=== PATIENT | male | born 1940 | race Caucasian/White ===

== ENCOUNTER → 2016-09-24 10:01 | Outpatient (CLI) | payer MEDICARE ==
[2013-09-21 14:02] VITALS: BMI 23.5
[~2016-09-24 10:01] MED LIST: BAYER CHEWABLE81 MG PO; COMBIVENT RESPIM4 GM INH; DIOVAN160 MG PO; NORVASC5 MG PO; PLAVIX75 MG PO; PRAVACHOL20 MG PO; PRILOSEC20 MG PO; PROAIR HFA8.5 GM INH; PULMICORT FLEX90 MCG INH; SYMBICORT 16010.2 GM INH
== END | disposition home or self-care (01) ==
LOC: D.RAD 10:01
DX: J40 Bronchitis, not specified as acute or chronic (principal)

== ENCOUNTER → 2016-11-29 13:43 | Outpatient (CLI) | payer MEDICARE ==
[2013-09-21 14:02] VITALS: BMI 23.5
== END | disposition home or self-care (01) ==
LOC: D.RAD 13:43
DX: J44.9 Chronic obstructive pulmonary disease, unspecified (principal)

== ENCOUNTER 2017-01-19 08:44 | Outpatient (CLI) | payer MEDICARE ==
[~2017-01-19] VITALS: Ht 182.9 cm; Wt 84.1 kg
--- NOTE | ~2017-01-19 | HEMODYNAMI ---
PATIENT:SONU GALLARDO MEDICAL RECORD: [id number] : 44 [facility] DATE: 01/19/17 Generatedon:01/19/201712:49 Patient name: SONU GALLARDO Patient #: [id number] SSN: : 1940 Date of study: 01/19/2017 Page: Of Hemodynamic Procedure Report Patient Data Patient Demographics Procedure consent was obtained First Name: SONU Gender: Male Last Name: SAMI : 1940 Patient #: [id number] Age: 76 year(s) Race: Additional ID: [id number] Contact details Address: [address] [place] [address] State: [place] [facility] [place]: [address] Past Medical History Allergies: No known allergies Admission Admission Data Admission Date: 01/19/2017 Admission Time: 8:44 Height (in.): 72 BSA: 2.06 (m2) Height (cm.): 182.88 BMI: 25.14 (kg/m2) Weight (lbs.): 185.39 Weight (kg.): 84.09 Lab Results Lab Result Date: 01/19/2017 Lab Result Time: 10:05 Biochemistry Name Units Result Min Max BUN mg/dl 17 --(---*)-- 7 18 Creatinine mg/dl 1 --(--*-)-- 0.6 1.3 CBC Name Units Result Min Max Hematocrit % 47.9 --(-*--)-- 42 54 Hemoglobin g/dl 15.9 --(--*-)-- 13.5 17.5 Procedure Procedure Types Cath Procedure Diagnostic Procedure C [facility] w/Coronaries Cardioversion BRITTNEY PCI Procedure Procedure Description Procedure Date Procedure Date: 01/19/2017 Procedure Start Time: 12:24 Procedure End Time: 12:43 Procedure Staff Name Function Nydia Geiger RT Scrub Ramon Delarosa RN Artist Suspect Darrin Zuniga RN Nurse Rob Bang CRNA Additional personnel Shantanu Gutierrez MD Performing Physician Jose Juan Murillo RT Monitor Procedure Data Cath Procedure Fluoroscopy Diagnostic fluoroscopy Total fluoroscopy Time: 1.9 time: 1.9 min min Diagnostic fluoroscopy Total fluoroscopy dose: 360 dose: 360 mGy mGy Contrast Material Contrast Material Type Amount (ml) Isovue 300 66 Entry Location Entry Primary Successful Side Size Upsize Upsize Entry Closure Succes sful Closure Location (Fr) 1 (Fr) 2 (Fr) Remarks Device Remarks Femoral Right 5 Fr 6 Fr Exoseal artery Short Estimated blood loss: 10 ml Diagnostic catheters Device Type Used For End Catheter Placement Cordis 5Fr Pigtail Procedure Catheter (MP) Cordis 5Fr JL 4.0 Procedure Catheter (MP) Cordis 5Fr 3DRC Catheter Procedure (MP) Procedure Complications No complications Procedure Medications Medication Administration Route Dosage Oxygen NC 2 l/min Lidocaine 2% added to field 20 Heparin Flush Bag added to field 2 bags (1000units/500ml NS) 0.9% NaCl I.V. 100 ml/hr Benadryl I.V. 50 mg unlisted medication Hurricaine [place] P.O. 1 Sprays Refer to Anesthesia Notes for Sedation Medications Fentanyl I.V. 50 mcg Heparin Bolus I.V. 4000 units Fentanyl I.V. 50 mcg Hemodynamics Rest BSA: 2.06 (m2) HGB: 15.9 (g/dl) O2 Consumption: Estimated: 230.19 (ml/min) O2 Co nsumption indexed: Estimated:111.74 (ml/min/m) Heart Rate: 61 (bpm) Snapshots Pre Cath Intra NCS Post Cath Vital Signs Time Heart Resp SPO2 etCO2 [id number] Respiration NIBP (mmHg) Rhythm Joe n Sedation Rate (ipm) (%) (mmHg) (mmHg) (CO2) (ipm) Status Leve l (bpm) 11:50:13 74 19 97 30.1 4.5 17 137/99(133) A-Fib 0 ( 11) 10(A) , No pain 11:54:18 75 15 98 29.3 3.7 7 150/99(136) A-Fib 0 ( 11) 10(A) , No pain 11:59:17 85 31 99 24 1.5 11 Measuring A-Fib 0 ( 11) 10(A) , No pain 12:02:20 80 24 99 28.6 5.2 15 148/68(129) A-Fib 0 ( 11) 10(A) , No pain 12:06:42 72 15 93 0 0 133/90(103) NSR 0 ( 11) 9(A) , No pain 12:12:14 73 18 93 30.8 3 29 73/44(64) NSR 0 ( 11) 9(A) , No pain 12:17:10 62 19 93 5.2 5.2 116/73(100) NSR 0 ( 11) 9(A) , No pain 12:21:22 62 16 96 2.2 2.2 120/71(96) NSR 0 ( 11) 9(A) , No pain 12:26:19 57 14 100 8.2 0 139/74(118) NSR 0 ( 11) 9(A) , No pain 12:30:37 61 16 100 6.7 6.7 143/83(123) NSR 0 ( 11) 9(A) , No pain 12:34:53 68 24 100 5.2 5.2 159/96(129) NSR 0 ( 11) 10(A) , No pain 12:39:16 69 17 100 9.7 0 154/105(130) NSR 0 ( 11) 10(A) , No pain 12:43:36 99 33.1 0 4 164/99(152) NSR 0 ( 11) 10(A) , No pain Medications Time Medication Route Dose Verified Delivered Reason Notes Effectiveness by by 11:51:25 Oxygen NC 2 Shantanu Clifford used for l/min Matt Zuniga RN procedure 11:51:31 Lidocaine 2% added 20ml Shantanu Fournier for local to vial Matt Gutierrez MD anesthetic field 11:51:40 Heparin Flush added 2 bags Shantanu Fournier used for Bag to Matt Gutierrez MD procedure (1000units/500ml field NS) 11:51:50 0.9% NaCl I.V. 100 Shantanu Clifford Per physician ml/hr Matt Zuniga RN 11:52:02 Benadryl I.V. 50 mg Shantanu Clifford used for Matt Zuniga RN procedure 11:58:30 Viscoius gargle Shantanu Clifford Per physician Lidocaine Matt Zuniga RN 11:58:42 Hurricaine [place] P.O. 1 Shantanu Clifford used for Sprays Matt Zuniga RN procedure 12:00:54 Refer to Shantanu Clifford Anesthesia Notes Matt Zuniga RN for Sedation Medications 12:23:46 Fentanyl I.V. 50 mcg Shantanu Clifford for sedation Matt Zuniga RN 12:27:35 Heparin Bolus I.V. 4000 Shantanu Clifford for verif ied units Matt Zuniga RN anticoagulation with dr gutierrez 12:30:56 Fentanyl I.V. 50 mcg Shantanu Clifford for sedation Matt Zuniga RN Procedure Log Time Note 11:30:50 Ramon Delarosa RN sent for patient. Start room use. 11:42:04 Time tracking: Regular hours 11:42:09 Plan of Care:Hemodynamics will remain stable., Cardiac rhythm will remain stable., Comfort level will be maintained., Respiratory function will remain adequate., Patient/ family verbilizes understanding of procedure., Procedure tolerated without complication., Recovers from procedure without complications.. 11:42:14 Patient received from Pre/Post Procedure Room to CCL 1 Alert and oriented. Tansferred to table in Supine position. 11:42:15 Warm blankets applied, and yumiko hugger turned on for patient comfort. 11:42:16 Correct patient and procedure confirmed by team. 11:42:17 Signed procedure consent form obtained from patient. 11:42:18 ECG and BP/O2 sat monitors applied to patient. 11:43:35 Full Disclosure recording started 11:43:43 H&P Date Dictated: 01/17/2017 Within 30 days and on chart., H&P Addendum completed by physician on day of procedure. (MUST COMPLETE FOR ALL OUTPATIENTS). 11:43:45 Pre-op teaching completed and patient verbalized understanding. 11:43:45 Pre-procedure instructions explained to patient. 11:43:47 Family in waiting room. 11:43:48 Patient NPO since Midnight. 11:44:53 Patient allergic to No known allergies 11:44:56 Is the patient allergic to Iodine/contrast media? No. 11:44:58 Is patient on blood thinner?Yes 11:45:08 ACC The patient was administered the following blood thiners within the last 24 hours: ACCPlavix 11:45:10 Patient diabetic? No. 11:45:13 Previous problem with sedation/anesthesia? No ? 11:45:15 Snore? No 11:45:17 Sleep apnea? No 11:45:18 Opens mouth fully? Yes 11:45:18 Deviated septum? No 11:45:19 Sticks out tongue? Yes 11:45:26 Airway obstruction? Yes COPD 11:45:29 Dentures? No ? 11:45:31 Pre procedure: right dorsailis pedis pulse 2+ Normal; easily identifiable; not easily obliterated 11:45:35 Patient pain scale 0/10 ?. 11:47:52 Vital chart was started 11:48:00 Rhythm: atrial fibrillation 11:49:43 Rob Bang present and monitoring patient for TIVA. 11:51:25 Oxygen 2 l/min NC was administered by Darrin Zuniga RN; used for procedure; 11:51:31 Lidocaine 2% 20ml vial added to field was administered by Shantanu Gutierrez MD; for local anesthetic; 11:51:40 Heparin Flush Bag (1000units/500ml NS) 2 bags added to field was administered by Shantanu Gutierrez MD; used for procedure; 11:51:50 0.9% NaCl 100 ml/hr I.V. was administered by Darrin Zuniga RN; Per physician; 11:52:02 Benadryl 50 mg I.V. was administered by Darrin Zuniga RN; used for procedure; 11:54:45 [facility] Lizette Vendor Analyst present for BRITTNEY. 11:56:59 Final Timeout: patient, procedure, and site verified with staff and physician. All members of the team are in agreement. 11:57:04 Right groin site verified by team. 11:57:07 Physical assessment completed. ASA score P 4 - A patient with severe systemic disease that is a constant threat to life as per Shantanu Gutierrez MD. 11:57:13 Sedation plan: TIVA Propofol 11:58:30 Viscoius Lidocaine gargle was administered by Darrin Zuniga RN; Per physician; 11:58:42 Hurricaine [place] 1 Sprays P.O. was administered by Darrin Zuniga RN; used for procedure; 12:00:54 Refer to Anesthesia Notes for Sedation Medications was administered by Darrin Zuniga RN; ; 12:01:43 Procedure started. 12:03:14 BRITTNEY started. 12:04:07 BRITTNEY completed. 12:04:45 IV patent on arrival in left hand with 0.9% NaCl at O. 12:05:27 Lab Result : Hemoglobin 15.9 g/dl 12:05:27 Lab Result : Hematocrit 47.9 % 12:: Lab Result : BUN 17 mg/dl 12:: Lab Result : Creatinine 1 mg/dl 12:05:37 Quick combo pads placed on patients chest and back. 12:05:49 Defibrillator synced and charged to 300 Joules. 12:05:52 Shock delivered. 12:06:08 Patient cardioverted to sinus rhythm . 12:07:12 Lab results completed and on chart. 12:07:14 Right groin area was prepped with chlora-prep and draped in sterile fashion 12:07:16 Sharps counted by scrub and verified by R.N. 12:07:16 Alarms reviewed by R. N. 12:18:49 Baseline sample Acquired. 12:18:57 Use device set Femoral Dx 12:18:58 Tegaderm 4 x 4 opened to sterile field. 12:18:59 Acist Manifold opened to sterile field. 12:19:00 Acist Hand Control opened to sterile field. 12:19:01 Bag Decanter opened to sterile field. 12:19:01 Acist Syringe opened to sterile field. 12:19:02 Terumo 5Fr [place] Sheath opened to sterile field. 12:19:02 Medline Cath Pack opened to sterile field. 12:19:03 St Naveen 260cm J .035 wire opened to sterile field. 12:19:04 Diagnostic Infinity 5Fr Multipack catheter opened to sterile field. 12:22:19 Zero performed for pressure channel P1 12:23:46 Fentanyl 50 mcg I.V. was administered by Darrin Zuniga RN; for sedation; 12:24:35 Local anesthetic to right femoral artery with Lidocaine 2% by Shantanu Gutierrez MD.INITIAL ACCESS ONLY 12:25:06 A 5 Fr sheath was inserted into the Right Femoral artery 12::34 Zero performed for pressure channel P1 12::38 Zero performed for pressure channel P1 12::42 Zero performed for pressure channel P1 12:26:03 Zero performed for pressure channel P1 12::08 Zero performed for pressure channel P1 12:26:13 A Cordis 5Fr Pigtail Catheter (MP) was advanced over the wire and used for Procedure. 12:26:30 LV gram done using COOPER 12::35 Injector settings: Ml/sec: 10, Volume: 20, 12::44 EF : 40 % 12::58 Catheter exchanged over wire. 12:: A Cordis 5Fr JL 4.0 Catheter (MP) was advanced over the wire and used for Procedure. 12::35 Heparin Bolus 4000 units I.V. was administered by Darrin Zuniga RN; for anticoagulation; verified with dr gutierrez 12::44 Terumo 6Fr [place] Sheath opened to sterile field. 12:27:45 Ustream BasixCompak Inflation Kit opened to sterile field. 12:27:46 Patel Whisper J 300cm 0.014 guide wire opened to sterile field. 12:27:49 Catheter exchanged over wire. 12::57 A Cordis 5Fr 3DRC Catheter (MP) was advanced over the wire and used for Procedure. 12:28: RCA angiography performed. 12:28:19 Catheter removed. 12:28:38 Cordis 6FR XBLAD 3.5 guide catheter opened to sterile field. 12:28:53 Sheath upsized to a 6 Fr Short. 12:29:59 6 Fr XBLAD 3.5 guide catheter was inserted over the wire 12:30:08 WHISPER wire advanced. 12:30:56 Fentanyl 50 mcg I.V. was administered by Darrin Zuniga RN; for sedation; 12:31:00 Wire advanced across lesion. 12::45 Inflation Number: 1 A Biofreedom 3.5 x 11 stent (No Cost Implant) was prepped and advanced across the Prox LAD. The stent was deployed at 15 ERWIN for 0:10 (min:sec). 12:32:19 Stent catheter was removed intact over wire. 12:32:20 Guide catheter removed. 12:32:20 Wire removed. 12:32:26 Cordis 6Fr Exoseal opened to sterile field. 12:32:35 Sheath removed intact; hemostasis achieved with Exoseal to the Right Femoral artery. 12:32:39 Procedure ended.(Physican Out) 12:37:09 Fluoroscopy time 01.90 minutes. 12:38:01 Fluoroscopy dose: 360 mGy 12:38:01 Flurop Dose total: 360 12:38:06 Contrast amount:Isovue 300 66ml. 12:38:08 Sharps counted by scrub and verified by R.N. 12:38:09 Insertion/operative site no bleeding no hematoma. 12:38:12 Post-op/insertion site Right Femoral artery dressed using a 4 x 4 and Tegaderm. 12:38:15 Post right femoral artery:stable, soft, clean and dry 12:38:17 Post Procedure Pulses reassessed and unchanged 12:38:19 Post-procedure physical assessment completed. ASA score P 4 - A patient with severe systemic disease that is a constant threat to life as per Shantanu Gutierrez MD. 12:38:22 Post procedure rhythm: sinus rhythm 12:38:24 Estimated blood loss: 10 ml 12:38:25 Patient needs reinforcement of post procedure teaching. 12:38:25 Post procedure instruction explained to patient.Patient verbalizes understanding. 12:38:55 Procedure type changed to Cath procedure, Diagnostic procedure, LHC, LHC w/Coronaries, Cardioversion, BRITTNEY, PCI procedure 12:41:03 Quick Combo opened to sterile field. 12:42:58 Procedure and supply charges have been captured, reviewed, submitted and are correct. 12:43:00 Procedure Complication : No complications 12:43:04 Vital chart was stopped 12:43:16 See physician's report for complete and final results. 12:43:19 Report given to Pre/Post Procedure Room. 12:43:21 Patient transfered to Pre/Post Procedure Room with Stretcher. 12:43:23 Full Disclosure recording stopped 12:43:23 Procedure ended. 12:43:27 End room use (Document Last) 12:49:32 Patient Weight : 185.39 kg 12:49:37 Patient Height : 72 cm Intervention Summary Intervention Notes Time ActionType Lesion and Equipment Action# Pressure Duration Attributes Used 12:31:45 Place stent Prox LAD Biofreedom 1 15 00:10 3.5 x 11 stent (No Cost Implant) Device Usage Item Name Manufacture Quantity Catalog Hospital Part Current Minima l Lot# / Number Charge Number Stock Stock Serial# Code Tegaderm 4 3M 1 1626W 279672 [id number] 304919 5 x 4 Acist Acist 1 92260 723361 197021 215417 5 Manifold Medical Systems Inc Acist Hand Acist 1 18255 284364 129644 571783 5 Control Medical Systems Inc Acist Acist 1 02705 204491 260062 724503 20 Syringe Medical Systems Inc Bag Microtek 1 2001S 537620 63030 480800 5 AFreeze Inc. Medline Cardinal 1 [id number] 845833 61287 017012 5 Cath Pack Health Terumo 5Fr Terumo 1 JOX219 535963 151092 673347 [address] [place] [address] St Naveen 1 566402 858192 668622 131129 30 260cm J .035 wire Diagnostic Cardinal 1 [id number] 238071 04986 855473 30 Infinity Health 5Fr Multipack catheter Cordis 5Fr Cardinal 1 055718 5 Pigtail Health Catheter (MP) Cordis 5Fr Cardinal 1 019720 5 JL 4.0 Health Catheter (MP) Terumo 6Fr Terumo 1 UGE131 581019 309797 006940 40 [place] Sheath [facility] 1 HX1752 171799 614726 575296 15 An Giang Plant [employer] Medical Inflation Kit Patel Patel 1 [id number] 696224 957601 643706 5 Whisper J Vascular 300cm 0.014 guide wire Cordis 5Fr Cardinal 1 836517 5 3DRC Health Catheter (MP) Cordis 6FR Cardinal 1 [id number] 333086 165014 538463 10 XBLAD 3.5 Health guide catheter Biofreedom Biosensors 1 [facility]2-2266 531988 801647 5 [id number] 3.5 x 11 [place] SA stent (No Cost Implant) Cordis 6Fr Cardinal 1 EX600 030765 246875 033766 10 [employer] Combo Edge Systems 1 27489-787981 515630 557108 046829 5 Signature Audit Tiller Stage Time Signature Unsigned Intra-Procedure 01/19/2017 Jose Juan Murillo RT(R) 12:44:11 PM RT(R) 01/19/2017 12:49:26 PM Intra-Procedure 01/19/2017 Jose Juan Murillo 12:49:51 PM RT(R) Signatures Monitor : Jose Juan Murillo RT Signature : Date : Time : [facility] [address] [place] [address]
[2017-01-19] MEDS ORDERED: CARTIA XT240 MG PO (09:46)
[2017-01-19 09:55] VITALS: BP 138/95; Ht 182.9 cm; Wt 84.1 kg
[2017-01-19 10:13] LABS: BASOPHILS 0.3 % (0-2); EOSINOPHILS 1.4 % (0-7); HEMATOCRIT 47.8 % (42.0-54.0); HEMOGLOBIN 15.9 g/dL (13.5-17.5); IMMATURE GRANULOCYTES 0.5 % (0-5); LYMPHOCYTES 9.2 % (15-50); MCH 32.3 pg (26.0-34.0); MCHC 33.3 g/dL (31.0-37.0); MEAN PLATELET VOLUME 10.5 fL (7.4-10.4); MONOCYTES 7.7 % (2-11); NEUTROPHILS 80.9 % (40-80); RBC 4.93 10x6/uL (4.20-6.10); RDW 12.1 % (11.5-14.5); WBC 12.1 10x3/uL (4.8-10.8)
[2017-01-19 10:22] LABS: PLATELET COUNT 207 10x3/uL (130-400)
[2017-01-19] MEDS ORDERED: XARELTO20 MG PO (10:29)
[2017-01-19 10:38] LABS: CALC OSMOLALITY 283 mosm/kg (275-300); CALCIUM 9.4 mg/dL (8.5-10.1); CARBON DIOXIDE 30.9 mmol/L (21.0-32.0); CHLORIDE - SERUM 103 mmol/L (98-107); CKMB 4.3 U/L (0.0-3.6); CREATINE KINASE 81 UL (21-232); GLUCOSE 121 mg/dL (74-106); POTASSIUM - SERUM 4.7 mmol/L (3.5-5.1); SODIUM 141 mmol/L (136-145); UREA NITROGEN 17 mg/dL (7-18); eGFR NON AFRICAN AMERICAN 78 mL/min (90-120)
[2017-01-19 10:54] LABS: TROPONIN-I < 0.017 ng/mL (0.000-0.060)
[2017-01-19 10:58] LABS: INR 1.05 (0.85-1.17); PROTIME 13.4 SECONDS (11.6-15.0)
--- NOTE | 2017-01-19 13:00 | NUR ---
RIGHT GROIN CDI, NO HEMATOMA OR BLEEDING, SOFT TO TOUCH
--- NOTE | 2017-01-19 13:30 | NUR ---
NO CHANGES, RIGHT GROIN CDI, DENIES PAIN OR NEEDS
--- NOTE | 2017-01-19 16:15 | NUR ---
AWAKE, SAT UP IN BED, SANDWICH AND COLA SERVED, DENIES CHEST PAIN OR NEEDS AT THIS TIME.RIGHT GROIN CDI-NO HEMATOMA OR BLEEDING NOTED, LAB AND EKG COMPLETED
--- NOTE | 2017-01-19 17:00 | NUR ---
IV D'C WITH CATH TIP INTACT, WRITTEN AND VERBAL INSTRUCTIONS GIVEN. DENIES CHEST PAIN.
--- NOTE | 2017-01-21 11:01 | TEE ---
PATIENT:SONU GALLARDO MEDICAL RECORD: [id number] LOCATION:D.CAT AGE OF PATIENT: 76 ADMISSION DATE: 01/19/17 SEX: M REFERRING PHYSICIAN: INTERPRETING PHYSICIAN: JORGE LUIS GUTIERREZ MD TRANSESOPHAGEAL ECHOCARDIOGRAM BRITTNEY CHARGE Y INDICATIONS: CAD/A-FIB - PRE CARDIOVERSION - EVALUATE FOR CLOT IN LA APPENDAGE PREMEDICATIONS: PATIENT'S RESPONSE PROCEDURE DOPPLER MEASUREMENTS: LVIT LA PA RA LVOT RVOT Asc. Ao AV Gradient Peak AV Mean AV Area MV Gradient Peak MV Mean MV Area INTERPRETATION: Doppler: 2-D: COLOR FLOW DOPPLER NORMAL SALINE STUDY: MISCELLANOUS: DIAGNOSIS: PLAN: Stamping Machine Operator:1 Dr. Gutierrez Care Coordination Manager: 1 SKYLAR DELA CRUZ COMMENTS: TRANSESOPHAGEAL ECHOCARDIOGRAM EVALUATION OF LEFT ATRIUM AND LEFT ATRIAL APPENDAGE PRIOR TO CARDIOVERSION 1. Left ventricular chamber size is within normal limits. Left ventricular systolic function is normal. Overall ejection fraction is estimated at 60 percent. 2. Left atrium, right atrium, and right ventricular chamber sizes are within normal limits. TRANSESOPHAGEAL ECHOCARDIOGRAM REPORT [id number] SONU GALLARDO 3. The left atrium and left atrial appendage show no evidence of thrombosis. 4. No evidence of pericardial effusion or left ventricular thrombus. at 1101 CC: [id number] DICTATION DATE: 01/19/17 1000 TRANSCRIPTER: DM 01/19/17 1540 DEP CLI 01/19/17 [facility] [address] [place] [address]
--- NOTE | 2017-01-21 11:01 | OP ---
PATIENT NAME: SONU GALLARDO MEDICAL RECORD: [id number] :44 LOCATION:D.CAT ADMISSION DATE: SURGEON: JORGE LUIS CANO MD OPERATION DATE: 01/19/17 DIRECT CURRENT CARDIOVERSION INDICATION: Atrial fibrillation. PROCEDURE: Conscious sedation was performed for anesthesia. Continuous heart rate, oxygen saturation, and blood pressure monitoring were all undertaken all of which remained stable. He received one shock at 300 joules restoring sinus rhythm. OVERALL IMPRESSION: Successful direct current cardioversion from atrial fibrillation to sinus rhythm. JORGE LUIS CANO MD at 1101 CC: [id number] DICTATION DATE: 01/19/17 1500 FISH CONSERVATIONIST: DM 01/19/17 1554 DEP CLI 01/19/17 [facility] [address] [place] [address]
--- NOTE | 2017-01-21 11:01 | OP ---
PATIENT NAME: SONU GALLARDO MEDICAL RECORD: [id number] :42 LOCATION:D.CAT ADMISSION DATE: SURGEON: JORGE LUIS CANO MD OPERATION DATE: 01/19/17 PROCEDURES: 1. Percutaneous transluminal coronary angioplasty stent left anterior descending. 2. Left heart catheterization. 3. Selective coronary angiography. 4. Left ventriculogram. INDICATION: 1. Angina. 2. Coronary artery disease. PROCEDURE IN DETAIL: After informed consent was obtained and after detailed explanation of risks, benefits, as well as alternative therapies, the patient elected to proceed with angiogram and angioplasty. The right femoral area was prepped and draped in a normal sterile fashion. The right femoral artery was cannulated via modified Seldinger technique with placement of 6-Azeri sheath. All catheters exchanged through this sheath. FINDINGS: Left ventriculogram was performed in standard 30 degree COOPER view, reveals global hypokinesis throughout all segments. Overall ejection fraction 40%. SELECTIVE CORONARY ANGIOGRAPHY: 1. The left main is with no significant angiographic disease. 2. The left anterior descending has previously placed stents. There is up to 80% in-stent restenosis in the very proximal vessel. 3. The left circumflex has mild irregularities but no flow-limiting stenosis. 4. The right coronary artery has mild irregularities but no flow-limiting stenosis. PTCA STENT OF THE LEFT ANTERIOR DESCENDING: The stent used was a 3.0 X 11 millimeter BioFreedom stent. This was an 8 millimeter lesion in a 3.0 vessel with NIYAH 3 flow before and after the intervention. The result was 0% residual stenosis. OVERALL IMPRESSION: Successful percutaneous transluminal coronary angioplasty stent of the left anterior descending going from 80% in-stent restenosis to 0% residual stenosis. JORGE LUIS CANO MD at 1101 CC: [id number] DICTATION DATE: 01/19/17 1400 SUPERVISOR STATEMENT CLERKS: DM 01/19/17 1546 DEP CLI 01/19/17 [place] [id number] [place] [address]
== END 2017-01-19 17:05 | disposition home or self-care (01) ==
LOC: D.CATH 08:44
PROVIDERS: Internal Medicine Interventional Cardiology
DX: I25.119 Atherosclerotic heart disease of native coronary artery with unspecified angina pectoris (principal); T82.855A Stenosis of coronary artery stent, initial encounter; I48.91 Unspecified atrial fibrillation; Z00.6 Encounter for examination for normal comparison and control in clinical research program; Z01.812 Encounter for preprocedural laboratory examination
CPT/HCPCS: 93458; C9600

== ENCOUNTER 2017-03-05 04:40 | Inpatient (IN) | payer MEDICARE ==
[~2017-03-05] VITALS: Ht 182.9 cm; Wt 97.6 kg
--- NOTE | ~2017-03-05 | CN ---
PATIENT NAME:SONU CURIEL MEDICAL RECORD: [id number] : 44 LOCATION:D.MS [id number] ADMIT DATE: 03/05/17 ACCOUNT: [id number] CONSULTING PHYSICIAN: MAIRA MUÑIZ MD REFERRING PHYSICIAN: GAVIN WELCH MD DATE OF CONSULTATION: 03/05/2017 CONSULT REQUESTING PHYSICIAN: Gavin Welch MD REASON FOR CONSULTATION: Acute exacerbation of chronic obstructive pulmonary disease, acute cough. HISTORY OF PRESENT ILLNESS: Mr. Curiel is a 76-year-old very pleasant gentleman with chronic hypoxic respiratory failure and severe COPD. According to the patient, he was not feeling well yesterday evening, but then at night time, his breathing was getting worse. He was coughing. He was wheezing with shortness of breath. Denies any chest pain. There are no fever or chill. There are no gastroesophageal reflux symptoms. REVIEW OF SYSTEMS: Mainly in the history of present illness. PAST MEDICAL HISTORY: 1. COPD of severe degree. 2. Chronic hypoxic respiratory failure. 3. Hypertension. 4. Coronary artery disease. 5. History of bradycardia. PAST SURGICAL HISTORY: 1. Cataract surgery. 2. Appendectomy. 3. Back surgery. 4. Cardiac catheterization and stent placement. ALLERGIES: There are no known drug allergies. PRESENT MEDICATIONS: On Berry White was reviewed. PERSONAL AND SOCIAL HISTORY: The patient is an ex-smoker. He is a nondrinker. FAMILY HISTORY: Noncontributory. PHYSICAL EXAMINATION: GENERAL: Now, the patient is lying comfortably in bed. He is not in acute respiratory distress. VITAL SIGNS: The blood pressure is 116/81, pulse is 86, respiration is 18, temperature 98.4, and SPO2 is 95% on nasal cannula. HEENT: Conjunctivae pink, sclerae nonicteric. NECK: Supple, no JVD. CHEST: Excursion is minimal on both sides. There is wheeze on forceful expiration. HEART: Rhythm regular, normal sound, no murmur. ABDOMEN: Soft. Bowel sounds present. No hepatosplenomegaly. RECTAL: Deferred. EXTREMITIES: No cyanosis, no clubbing, no pedal edema. CONSULT REPORT [id number] SONU CURIEL SKIN: Warm, normal turgor. CENTRAL NERVOUS SYSTEM: The patient is awake and alert. There are no obvious cranial nerve abnormalities. The gait was not tested. CHEST RADIOGRAPH: Hyperinflation, no acute infiltrate. OTHER LABORATORY DATA: CBC: The WBC is 8.6, hemoglobin 15.4, hematocrit 46.5, the platelet count 235. Chemistry: Sodium 137, potassium 5.1, BUN is 23, creatinine 1.1 and glucose 146. IMPRESSION: 1. Acute exacerbation of chronic obstructive pulmonary disease. 2. Acute bronchitis. 3. Jjemg-lz-yrbvrrf hypoxic respiratory failure. 4. Hypertension. 5. Coronary artery disease. 6. Acute cough. RECOMMENDATION: 1. Levaquin IV, methylprednisolone IV, Brovana and budesonide nebulizer, albuterol and ipratropium nebulizer, start her on Daliresp 0.5 mg daily, Mucinex DM 2 tablets b.i.d. 2. Follow up labs and chest radiograph. Dr. Welch, thank you for involving me in the care of Mr. Curiel. TRANSINT:[id number] Voice Confirmation ID: [id number] DOCUMENT ID: [id number] MAIRA MUÑIZ MD CC: GUNNER ESTRELLA MD [id number] DICTATION DATE: 03/05/171539 MAINSPRING FABRICATION SUPERVISOR: 03/05/172017 ADM IN [facility] [address] [place] [address]
[~2017-03-05 04:40] MED LIST changes: +CARTIA XT240 MG PO; +XARELTO20 MG PO
[2017-03-05 05:26] LABS: HEMATOCRIT 46.5 % (42.0-54.0); HEMOGLOBIN 15.4 g/dL (13.5-17.5); LYMPHOCYTES 13.9 % (15-50); MCH 31.2 pg (26.0-34.0); MCHC 33.1 g/dL (31.0-37.0); MCV 94.1 fL (80.0-100.0); MEAN PLATELET VOLUME 10.1 fL (7.4-10.4); NEUTROPHILS 74.4 % (40-80); PLATELET COUNT 235 10x3/uL (130-400); RBC 4.94 10x6/uL (4.20-6.10); RDW 12.1 % (11.5-14.5); WBC 8.6 10x3/uL (4.8-10.8)
[2017-03-05 05:42] LABS: ALBUMIN 3.5 g/dL (3.4-5.0); ANION GAP 11.6 mmol/L (8-16); BILIRUBIN - TOTAL 0.5 mg/dL (0.2-1.3); CALCIUM 8.8 mg/dL (8.5-10.1); CARBON DIOXIDE 28.5 mmol/L (21.0-32.0); CREATININE - SERUM 1.1 mg/dL (0.6-1.3); POTASSIUM - SERUM 5.1 mmol/L (3.5-5.1)
--- NOTE | 2017-03-05 07:45 | NUR ---
RECEIVED TO ROOM 2239 VIA STRETCHER FROM ED. A/O X3. AT BEDSIDE. SKIN INTACT WITHOUT REDNESS. DENIES NEEDS. LUNGS ARE CLEAR BUT DIMINISHED THROUGHOUT. OCCASSIONAL DRY COUGH NOTED. PLACED ON O2 2L NC. SATS 96-96%.
[2017-03-05 07:54] VITALS: BP 126/73; BMI 24.4
[2017-03-05 09:50] VITALS: BP 125/77
[2017-03-05 10:27] VITALS: Ht 182.9 cm; Wt 97.6 kg
[2017-03-05 11:51] VITALS: BP 116/81
[2017-03-05] MEDS ORDERED: HYDROCODON-ACE1 EAC9 PO (12:17)
--- NOTE | 2017-03-05 12:30 | NUR ---
LUNCH SERVED IN ROOM ATE MOST OF MEAL. UP TO BR WITH ONE PERSON SBA. VOIDED WITHOUT DIFFICULTY. DENIES NEEDS.
[2017-03-05 16:20] VITALS: BP 128/84
--- NOTE | 2017-03-05 19:53 | NUR ---
REC'D IN BED AWAKE AND ALERT. RESP EVEN AND UNLABORED WITH NO DISTRESS NOTED. NO C/O PAIN OR DISCOMFORT NOTED SUCH FACIAL GRIMANCES OR MOANING. ASSESSMENT COMPLETED AT THIS TIME. C/L IN REACH AT BEDSIDE.
[2017-03-05 20:00] VITALS: BP 118/73
--- NOTE | 2017-03-05 20:10 | NUR ---
ENTERED ROOM, PATIENT LAYING ON HIS RIGHT SIDE, HOB 10 DEGREES. RECIEVING OXYGEN VIA NASAL CANNULA AT 4L/MIN. LIGHTS OFF. PATIENT STATED "ALL I NEED IS SOME SLEEP." BED IN LOWEST POSITION, CALL LIGHT IN REACH. BED RIALS UP X'S 2.
[2017-03-06] VITALS: BP 81/54
[2017-03-06 04:00] VITALS: BP 112/59
[2017-03-06 05:27] LABS: BASOPHILS 0 % (0-2); EOSINOPHILS 0 % (0-7); HEMATOCRIT 41.8 % (42.0-54.0); HEMOGLOBIN 13.9 g/dL (13.5-17.5); IMMATURE GRANULOCYTES 0.2 % (0-5); LYMPHOCYTES 5.3 % (15-50); MCH 31.7 pg (26.0-34.0); MCHC 33.3 g/dL (31.0-37.0); MCV 95.4 fL (80.0-100.0); MEAN PLATELET VOLUME 10.4 fL (7.4-10.4); MONOCYTES 2.5 % (2-11); PLATELET COUNT 217 10x3/uL (130-400); RBC 4.38 10x6/uL (4.20-6.10); RDW 11.6 % (11.5-14.5); WBC 9.4 10x3/uL (4.8-10.8)
[2017-03-06 05:50] LABS: CALC OSMOLALITY 282 mosm/kg (275-300); CALCIUM 8.5 mg/dL (8.5-10.1); CARBON DIOXIDE 28.7 mmol/L (21.0-32.0); CHLORIDE - SERUM 103 mmol/L (98-107); GLUCOSE 154 mg/dL (74-106); POTASSIUM - SERUM 4.8 mmol/L (3.5-5.1); SODIUM 138 mmol/L (136-145); UREA NITROGEN 24 mg/dL (7-18); eGFR NON AFRICAN AMERICAN 78 mL/min (90-120)
--- NOTE | 2017-03-06 07:19 | NUR ---
PATIENT IS RESTING IN HIS BED. PATIENT IS AWAKE, ALERT, AND ORIENTED X4. PATIENT DENIES ANY NEEDS AT PRESENT TIME. CALL LIGHT IN PATIENT'S REACH. WILL MONITOR PATIENT.
[2017-03-06 08:00] VITALS: BP 112/66
--- NOTE | 2017-03-06 08:30 | NUR ---
PATIENT RESTING IN HIS BED. SCHEDULED MEDICATIONS GIVEN TO PATIENT. PATIENT COMPLAINS OF PAIN IN HIS BACK. PATIENT RATES HIS PAIN LEVEL AN "8" ON A 0-10 SCALE. SCHEDULED HYDROCODONE GIVEN TO PATIENT. TELEMETRY IN PLACE AND SHOWING CAF WITH A RATE OF 64. IV SITE PATENT WITHOUT ANY S/S OF INFECTION NOTED IN PATIENT'S LEFT HAND. ASSESSMENT COMPLETED. SEE FLOW SHEET FOR ANY DETAILS. PATIENT DENIES NEEDS AT PRESENT TIME. CALL LIGHT IN PATIENT'S REACH. WILL MONITOR PATIENT.
[2017-03-06 11:00] VITALS: BP 119/70
--- NOTE | 2017-03-06 15:09 | NUR ---
PATIENT RESTING IN HIS BED. SCHEDULED HYDROCODONE GIVEN TO PATIENT. PATIENT RATES HIS PAIN LEVEL AN "8" ON A 0-10 SCALE AND REPORTS PAIN IN HIS BACK. PATIENT DENIES ANY NEEDS AT PRESENT TIME. CALL LIGHT IN PATIENT'S REACH. WILL MONITOR PATIENT.
[2017-03-06 18:23] VITALS: BP 120/72
[2017-03-06 20:00] VITALS: BP 149/76
--- NOTE | 2017-03-06 20:00 | NUR ---
REC'D IN SITTING ON SIDE OF BED AWAKE AND ALERT VISITING WITH FAMILY. RESP EVEN AND UNLABORED WITH NO DISTRESS NOTED. ASSESSMENT COMPLETED. C/L IN REACH AT BEDSIDE.
[2017-03-07] VITALS: BP 110/65
--- NOTE | 2017-03-07 03:09 | NUR ---
CONTINUE TO REST WELL AT THIS TIME. NO C/O NOTED OR VOICED.
--- NOTE | 2017-03-07 03:59 | NUR ---
RN NOTE: PT LYING IN SEMI HUTTON'S POSITION WITH EYES CLOSED. IV IN LEFT HAND PATENT WITH NS INFUSING AT 50 ML / HR. WILL CONTINUE TO MONITOR FOR NEEDS. CALL LIGHT WITHIN REACH.
[2017-03-07 04:00] VITALS: BP 136/65
[2017-03-07 04:13] LABS: BASOPHILS 0.1 % (0-2); EOSINOPHILS 0 % (0-7); HEMATOCRIT 42.2 % (42.0-54.0); HEMOGLOBIN 13.9 g/dL (13.5-17.5); IMMATURE GRANULOCYTES 0.5 % (0-5); LYMPHOCYTES 2.6 % (15-50); MCH 31.6 pg (26.0-34.0); MCHC 32.9 g/dL (31.0-37.0); MCV 95.9 fL (80.0-100.0); MEAN PLATELET VOLUME 10.5 fL (7.4-10.4); MONOCYTES 3.2 % (2-11); NEUTROPHILS 93.6 % (40-80); PLATELET COUNT 227 10x3/uL (130-400); RDW 11.8 % (11.5-14.5)
[2017-03-07 04:19] LABS: WBC 11.9 10x3/uL (4.8-10.8)
[2017-03-07 04:27] LABS: ANION GAP 12.9 mmol/L (8-16); CALCIUM 8.9 mg/dL (8.5-10.1); CARBON DIOXIDE 29.4 mmol/L (21.0-32.0); CREATININE - SERUM 1.2 mg/dL (0.6-1.3); POTASSIUM - SERUM 4.3 mmol/L (3.5-5.1)
--- NOTE | 2017-03-07 08:25 | NUR ---
PT AWAKE AND ALERT. ON 3 L O2 VIA NASAL CANULA. LEFT FOREARM PERIPHERAL IV SALINE LOCKED. PT REPORTS NO PAIN AT THIS TIME. CALL LIGHT IN REACH. WILL CONTINUE TO MONITOR.
[2017-03-07 08:59] VITALS: BP 144/76
[2017-03-07 11:41] VITALS: BP 138/80
[2017-03-07 16:19] VITALS: BP 125/79
--- NOTE | 2017-03-07 19:30 | NUR ---
PATIENT RESTING IN BED WITH GUESTS AT BEDSIDE. PATIENT HAS NO VISIBLE SIGNS OF DISTRESS. BED IN LOWEST POSITION AND CALL LIGHT WITHIN REACH.
[2017-03-07 20:00] VITALS: BP 137/82
[2017-03-08] VITALS: BP 112/55
[2017-03-08 03:59] VITALS: BP 111/64
[2017-03-08 06:34] LABS: BASOPHILS 0 % (0-2); EOSINOPHILS 0 % (0-7); HEMATOCRIT 43.7 % (42.0-54.0); HEMOGLOBIN 14.3 g/dL (13.5-17.5); IMMATURE GRANULOCYTES 0.7 % (0-5); LYMPHOCYTES 3.2 % (15-50); MCH 31.4 pg (26.0-34.0); MCHC 32.7 g/dL (31.0-37.0); MEAN PLATELET VOLUME 10.4 fL (7.4-10.4); NEUTROPHILS 89.1 % (40-80); PLATELET COUNT 222 10x3/uL (130-400); RBC 4.55 10x6/uL (4.20-6.10); RDW 11.8 % (11.5-14.5); WBC 12.3 10x3/uL (4.8-10.8)
[2017-03-08 06:43] LABS: ANION GAP 11.6 mmol/L (8-16); CALCIUM 8.8 mg/dL (8.5-10.1); CARBON DIOXIDE 31.8 mmol/L (21.0-32.0); CREATININE - SERUM 1.1 mg/dL (0.6-1.3); POTASSIUM - SERUM 4.4 mmol/L (3.5-5.1)
--- NOTE | 2017-03-08 07:30 | NUR ---
PT SITTING UP IN BED DENIES ANY NEEDS VOICES WANT TO GO HOME TODAY,. WILL CONT TO MONITOR
[2017-03-08 08:02] LABS: MAGNESIUM - SERUM 1.9 mg/dL (1.8-2.4); PHOSPHOROUS 3.4 mg/dL (2.5-4.9)
[2017-03-08 09:24] VITALS: BP 160/85
[2017-03-08] MEDS ORDERED: Levaquin PO (11:37)
[2017-03-08] MEDS ORDERED: DALIRESP500 MCG PO (11:38)
[2017-03-08] MEDS ORDERED: COLACE100 MG PO (11:38)
[2017-03-08] MEDS ORDERED: FLORAJEN3 CAPS460 MG PO (11:38)
[2017-03-08] MEDS ORDERED: PULMICORT0.5 MG/21 UPD (11:38)
[2017-03-08] MEDS ORDERED: MUCINEX DM ER1 EAC1 PO (11:38)
[2017-03-08] MEDS ORDERED: SINGULAIR10 MG PO (11:38)
[2017-03-08] MEDS ORDERED: PREDNISONE20 MG PO (11:39)
--- NOTE | 2017-03-08 13:09 | NUR ---
Patient Name: SONU GALLARDO Admission Status: ER Accout number: [id number] Admission Date: 03-06-2017 : 1940 Admission Diagnosis:CHRONIC OBSTRUCTIVE PULMONARY DISEASE W (ACUTE) EXACERB Attending: MOISES RICHARDSON Current LOS: 2 Anticipated DC Date: 03-08-2017 Planned Disposition: Home with Home Health Primary Insurance: MEDICARE A & B Discharge Planning Comments: CM MET WITH PATIENT REGARDING D/C NEEDS AND PLANS. PATIENT STATED HE LIVES WITH HIS AND THERE IS ONE FLIGHT OF STAIRS AT THERE HOME. PATIENT STATED HE WILL TAKE A TAXI HOME AT DISCHARGE. PATIENT IS INDEPENDENT WITH HIS CARE AND HAS OXYGEN, PORTABLE O2, AND NEBULIZER AT HOME. PATIENTS PCP IS DR. ESTRELLA AND PHARMACY IS [facility]. PATIENT SIGNED THE [place] FORM WITH [facility]. REFERRAL SENT AND CALLED. CM WILL CONTINUE TO FOLLOW PATIENT WITH D/C NEEDS AND PLANS. CM WILL CONTINUE TO FOLLOW PATIENT WITH D/C NEEDS AND PLANS. PCP DR. DEL[facility] [facility] [phone] JEWELS () [phone] Automobile Upholsterer Apprentice: Shea Vargas Is the patient Alert and Oriented? Yes 0 * How many steps to enter\exit or inside your home? 1 FLIGHT 0 * PCP DR. ESTRELLA 0 * [facility] * Preadmission Environment Home with Family 0 * ADLs Independent 0 * Equipment Nebulizer Oxygen 0 * Other Equipment PORTABLE O2 0 * List name and contact numbers for known caregivers / representatives who currently or will assist patient after discharge: JEWELS () [phone] * Community resources currently utilized None 0 * Additional services required to return to the preadmission environment? Yes 0 * Can the patient safely return to the preadmission environment? Yes 0 * Has this patient been hospitalized within the prior 30 days at any hospital? No 0 Grand Total: 0
--- NOTE | 2017-03-08 13:40 | NUR ---
PT SITTING UP ON SIDE OF BED ANXIOUS TO GO HOME. DC HAS BEEN PUT IN, WAITING ON DC PAPERWORK. WILL DC PT WHEN PAPERWORK IS READY. PT WITH NO OTHER CONCERNS OR COMPLAINTS. WILL CONT TO [facility].
[2017-03-08 14:13] VITALS: BP 141/87
--- NOTE | 2017-03-08 14:40 | NUR ---
CM REASSESSMENT NOTE: PATIENT IS DISCHARGING HOME TODAY BY TAXI. [facility] WILL FOLLOW PATIENT. [place] SIGNED AND IMM SERVED
--- NOTE | 2017-03-08 15:42 | NUR ---
WENT OVER DC PAPERWORK WITH PT PT VERBALIZES UNDERSTANDING. PT GIVEN SCRIPT FOR LEVAQU[facility], OTHERS CALLED IN TO PT PHARMACY. DC PIV WITH CATH TIP INTACT. DC TELE AND RETURNED TO SKEET OPERATOR. PT WAS WHEELED OUT TO FRONT ENTRANCE BY VOLUNTEER
== END 2017-03-08 15:43 | disposition home health service (06) | DRG 189 ==
LOC: D.ER 04:40 → OBSVTIME 06:32 → D.MS 06:32
PROVIDERS: Emergency Medicine; ADMIT Family Medicine
DX: J96.21 Acute and chronic respiratory failure with hypoxia (principal); J44.0 Chronic obstructive pulmonary disease with (acute) lower respiratory infection; J44.1 Chronic obstructive pulmonary disease with (acute) exacerbation; J20.9 Acute bronchitis, unspecified; I25.10 Atherosclerotic heart disease of native coronary artery without angina pectoris; E66.9 Obesity, unspecified; E78.5 Hyperlipidemia, unspecified; K21.9 Gastro-esophageal reflux disease without esophagitis; Z87.891 Personal history of nicotine dependence; Z68.24 Body mass index [BMI] 24.0-24.9, adult

== ENCOUNTER 2017-03-25 15:11 | Inpatient (IN) | payer MEDICARE ==
[~2017-03-25] VITALS: Ht 182.9 cm; Wt 81.8 kg
[~2017-03-25 15:11] MED LIST changes: +COLACE100 MG PO; +DALIRESP500 MCG PO; +FLORAJEN3 CAPS460 MG PO; +HYDROCODON-ACE1 EAC9 PO; +Levaquin PO; +MUCINEX DM ER1 EAC1 PO; +PREDNISONE20 MG PO; +PULMICORT0.5 MG/21 UPD; +SINGULAIR10 MG PO
[2017-03-25 23:29] VITALS: Ht 182.9 cm; Wt 81.8 kg
[2017-03-30] MEDS ORDERED: COMBIVENT RESPIM4 GM INH (11:46)
[2017-03-30] MEDS ORDERED: LANOXIN250 MCG PO (11:47)
[2017-03-30] MEDS ORDERED: ELIQUIS2.5 MG PO (11:48)
[2017-03-30] MEDS ORDERED: ONDANSETRON4 MG/2 M3 IV (11:50)
[2017-03-30 12:19] VITALS: BP 105/70
== END 2017-03-30 17:00 | DRG 419 ==
LOC: D.ER 15:11 → D.MS 19:31 → D.SDCHOLD 19:31 → D.MS 19:32
PROVIDERS: ADMIT Family Medicine Adult Medicine
PROC: 0FT44ZZ Resection of Gallbladder, Percutaneous Endoscopic Approach (ICD-10-PCS; principal; 2017-03-25)
DX: K81.0 Acute cholecystitis (principal); I48.2 Chronic atrial fibrillation; I10 Essential (primary) hypertension; J44.9 Chronic obstructive pulmonary disease, unspecified; K21.9 Gastro-esophageal reflux disease without esophagitis; Z99.81 Dependence on supplemental oxygen; I25.10 Atherosclerotic heart disease of native coronary artery without angina pectoris; E66.9 Obesity, unspecified; Z68.25 Body mass index [BMI] 25.0-25.9, adult

== ENCOUNTER 2017-03-30 17:29 | Inpatient (IN) | payer MEDICARE ==
[~2017-03-30] VITALS: Ht 182.9 cm; Wt 80.7 kg
[~2017-03-30 17:29] MED LIST changes: +ELIQUIS2.5 MG PO; +LANOXIN250 MCG PO; +ONDANSETRON4 MG/2 M3 IV
[2017-03-31 14:07] VITALS: Ht 182.9 cm; Wt 80.7 kg
[2017-04-03 08:00] VITALS: BP 91/55
[2017-04-03] MEDS ORDERED: HYDROCODON-ACE1 EAC9 PO (12:08)
== END 2017-04-03 14:45 | disposition home or self-care (01) | DRG 446 ==
LOC: D.REHAB 17:29
PROVIDERS: ADMIT Emergency Medicine
DX: K81.0 Acute cholecystitis (principal); I48.91 Unspecified atrial fibrillation; R10.13 Epigastric pain; R11.2 Nausea with vomiting, unspecified; R53.1 Weakness; R53.83 Other fatigue; J43.9 Emphysema, unspecified; E66.9 Obesity, unspecified; I25.10 Atherosclerotic heart disease of native coronary artery without angina pectoris; R79.89 Other specified abnormal findings of blood chemistry; E87.5 Hyperkalemia; R82.4 Acetonuria; D72.829 Elevated white blood cell count, unspecified; I10 Essential (primary) hypertension

== ENCOUNTER → 2017-04-22 12:41 | Outpatient (CLI) | payer MEDICARE ==
[2017-03-31 14:07] VITALS: BMI 24.1
[2017-04-22 13:39] LABS: HEMATOCRIT 39.4 % (42.0-54.0); HEMOGLOBIN 12.8 g/dL (13.5-17.5); MCH 31.1 pg (26.0-34.0); MCHC 32.5 g/dL (31.0-37.0); MCV 95.9 fL (80.0-100.0); MEAN PLATELET VOLUME 10.2 fL (7.4-10.4); PLATELET COUNT 344 10x3/uL (130-400); RBC 4.11 10x6/uL (4.20-6.10); RDW 12.7 % (11.5-14.5); WBC 21.4 10x3/uL (4.8-10.8)
[2017-04-22 13:55] LABS: EOSINOPHILS 1 % (0-7); LYMPHOCYTES 8 % (15-50); MONOCYTES 9 % (2-11); NEUTROPHILS 82 % (40-80); PLATELET ESTIMATE NORMAL
[2017-04-22 13:59] LABS: ALBUMIN 3.1 g/dL (3.4-5.0); ANION GAP 14.8 mmol/L (8-16); BILIRUBIN - DIRECT 0.18 mg/dL (0.00-0.30); BILIRUBIN - INDIRECT 0.39 mg/dL (0.00-1.00); BILIRUBIN - TOTAL 0.57 mg/dL (0.2-1.3); CALCIUM 9.6 mg/dL (8.5-10.1); CARBON DIOXIDE 27.8 mmol/L (21.0-32.0); CREATININE - SERUM 1.2 mg/dL (0.6-1.3); POTASSIUM - SERUM 4.6 mmol/L (3.5-5.1); PROTEIN - SERUM 7.7 g/dL (6.4-8.2)
== END | disposition home or self-care (01) ==
LOC: D.US 12:30
PROVIDERS: Surgery
DX: K81.0 Acute cholecystitis (principal)

== ENCOUNTER 2018-03-07 06:56 | Inpatient (IN) | payer MEDICARE ==
[2018-03-07] VITALS (19 sets, daily range): BP systolic 114–149; BP diastolic 75–104; BMI 24.4
[~2018-03-07] VITALS: Ht 182.9 cm; Wt 84.5 kg
[2018-03-07 07:54] LABS: BASOPHILS 0.4 % (0-2); HEMOGLOBIN 14.5 g/dL (13.5-17.5); IMMATURE GRANULOCYTES 0.4 % (0-5); LYMPHOCYTES 7.7 % (15-50); MCH 31.7 pg (26.0-34.0); MCV 96.3 fL (80.0-100.0); MEAN PLATELET VOLUME 10.4 fL (7.4-10.4); MONOCYTES 8.2 % (2-11); NEUTROPHILS 78.3 % (40-80); RBC 4.57 10x6/uL (4.20-6.10); RDW 12.5 % (11.5-14.5); WBC 11.4 10x3/uL (4.8-10.8)
[2018-03-07 07:56] LABS: PLATELET COUNT 220 10x3/uL (130-400)
[2018-03-07 08:20] LABS: ALBUMIN 3.5 g/dL (3.4-5.0); ALKALINE PHOSPHATASE 67 U/L (46-116); ALT (SGPT) 23 U/L (10-68); BILIRUBIN - TOTAL 0.54 mg/dL (0.2-1.3); CALC OSMOLALITY 277 mosm/kg (275-300); CALCIUM 8.4 mg/dL (8.5-10.1); CARBON DIOXIDE 35.2 mmol/L (21.0-32.0); CHLORIDE - SERUM 100 mmol/L (98-107); CREATINE KINASE 77 UL (21-232); CREATININE - SERUM 0.9 mg/dL (0.6-1.3); GLUCOSE 111 mg/dL (74-106); POTASSIUM - SERUM 3.9 mmol/L (3.5-5.1); SODIUM 138 mmol/L (136-145); TROPONIN-I < 0.017 ng/mL (0.000-0.060); UREA NITROGEN 14 mg/dL (7-18); eGFR NON AFRICAN AMERICAN 87 mL/min (90-120)
[2018-03-07 11:17] LABS: APTT 29.2 SECONDS (22.8-39.4); INR 1.02 (0.85-1.17)
[2018-03-07 11:19] LABS: D-DIMER-QUANTITATIVE 0.47 ug/mLFEU (0.20-0.54)
[2018-03-08] VITALS (8 sets, daily range): BP systolic 105–126; BP diastolic 54–83; Ht 182.9 cm; Wt 84.5 kg
[2018-03-08 04:39] LABS: BASOPHILS 0 % (0-2); EOSINOPHILS 0 % (0-7); HEMOGLOBIN 14.1 g/dL (13.5-17.5); IMMATURE GRANULOCYTES 0.9 % (0-5); LYMPHOCYTES 5.9 % (15-50); MCH 31.4 pg (26.0-34.0); MEAN PLATELET VOLUME 10.9 fL (7.4-10.4); MONOCYTES 2.9 % (2-11); NEUTROPHILS 90.3 % (40-80); PLATELET COUNT 248 10x3/uL (130-400); RBC 4.49 10x6/uL (4.20-6.10); RDW 12.5 % (11.5-14.5)
[2018-03-08 04:44] LABS: WBC 5.6 10x3/uL (4.8-10.8)
[2018-03-08 04:59] LABS: ALBUMIN 3.2 g/dL (3.4-5.0); ANION GAP 5.9 mmol/L (8-16); BILIRUBIN - TOTAL 0.33 mg/dL (0.2-1.3); CALCIUM 8.5 mg/dL (8.5-10.1); CARBON DIOXIDE 39.8 mmol/L (21.0-32.0); CREATININE - SERUM 1.1 mg/dL (0.6-1.3); MAGNESIUM - SERUM 1.7 mg/dL (1.8-2.4); PHOSPHOROUS 4.2 mg/dL (2.5-4.9); POTASSIUM - SERUM 4.7 mmol/L (3.5-5.1); PROTEIN - SERUM 6.7 g/dL (6.4-8.2)
[2018-03-09 04:00] VITALS: BP 103/63
[2018-03-09 06:22] LABS: ANION GAP 6.1 mmol/L (8-16); CALCIUM 8.4 mg/dL (8.5-10.1); CARBON DIOXIDE 36.3 mmol/L (21.0-32.0); CREATININE - SERUM 1.3 mg/dL (0.6-1.3); MAGNESIUM - SERUM 1.9 mg/dL (1.8-2.4); POTASSIUM - SERUM 4.4 mmol/L (3.5-5.1)
[2018-03-09 08:47] VITALS: BP 104/60
[2018-03-09 12:21] VITALS: BP 110/50
[2018-03-09 17:02] VITALS: BP 123/95
[2018-03-09 20:00] VITALS: BP 101/62
[2018-03-10] VITALS: BP 94/55
[2018-03-10 04:00] VITALS: BP 123/64
[2018-03-10 06:23] LABS: ANION GAP 5.6 mmol/L (8-16); CALCIUM 8.1 mg/dL (8.5-10.1); CARBON DIOXIDE 34.5 mmol/L (21.0-32.0); CREATININE - SERUM 1.1 mg/dL (0.6-1.3); POTASSIUM - SERUM 4.1 mmol/L (3.5-5.1)
[2018-03-10 06:47] LABS: BASOPHILS 0 % (0-2); EOSINOPHILS 0 % (0-7); HEMATOCRIT 38.5 % (42.0-54.0); HEMOGLOBIN 12.4 g/dL (13.5-17.5); IMMATURE GRANULOCYTES 0.7 % (0-5); LYMPHOCYTES 4.5 % (15-50); MCH 30.8 pg (26.0-34.0); MCHC 32.2 g/dL (31.0-37.0); MCV 95.5 fL (80.0-100.0); MEAN PLATELET VOLUME 10.7 fL (7.4-10.4); MONOCYTES 5.4 % (2-11); NEUTROPHILS 89.4 % (40-80); PLATELET COUNT 229 10x3/uL (130-400); RBC 4.03 10x6/uL (4.20-6.10); RDW 12.6 % (11.5-14.5)
[2018-03-10 08:03] VITALS: BP 130/71
[2018-03-10 11:55] VITALS: BP 132/73
[2018-03-10 16:15] VITALS: BP 123/81
[2018-03-10 21:10] VITALS: BP 130/70
[2018-03-11 05:07] VITALS: BP 154/64
[2018-03-11 05:22] LABS: BASOPHILS 0.1 % (0-2); EOSINOPHILS 0.1 % (0-7); HEMOGLOBIN 13.4 g/dL (13.5-17.5); IMMATURE GRANULOCYTES 0.8 % (0-5); LYMPHOCYTES 9.7 % (15-50); MCHC 31.9 g/dL (31.0-37.0); MCV 97.2 fL (80.0-100.0); MEAN PLATELET VOLUME 10.5 fL (7.4-10.4); MONOCYTES 5.9 % (2-11); NEUTROPHILS 83.4 % (40-80); PLATELET COUNT 243 10x3/uL (130-400); RBC 4.32 10x6/uL (4.20-6.10); RDW 12.8 % (11.5-14.5); WBC 13.2 10x3/uL (4.8-10.8)
[2018-03-11 05:32] LABS: CALC OSMOLALITY 283 mosm/kg (275-300); CALCIUM 8.5 mg/dL (8.5-10.1); CARBON DIOXIDE 35.8 mmol/L (21.0-32.0); CHLORIDE - SERUM 104 mmol/L (98-107); GLUCOSE 87 mg/dL (74-106); POTASSIUM - SERUM 4.5 mmol/L (3.5-5.1); SODIUM 140 mmol/L (136-145); UREA NITROGEN 28 mg/dL (7-18); eGFR NON AFRICAN AMERICAN 77 mL/min (90-120)
[2018-03-11 07:57] VITALS: BP 135/77
[2018-03-11 11:11] VITALS: BP 122/78
[2018-03-11 14:46] VITALS: BP 152/85
[2018-03-11 15:45] VITALS: BP 117/77
[2018-03-11 22:12] VITALS: BP 151/83
[2018-03-12 04:27] VITALS: BP 124/74
[2018-03-12 05:06] LABS: BASOPHILS 0.1 % (0-2); EOSINOPHILS 0.2 % (0-7); HEMATOCRIT 39.7 % (42.0-54.0); HEMOGLOBIN 12.8 g/dL (13.5-17.5); IMMATURE GRANULOCYTES 1.5 % (0-5); LYMPHOCYTES 16.3 % (15-50); MCH 30.8 pg (26.0-34.0); MCHC 32.2 g/dL (31.0-37.0); MCV 95.7 fL (80.0-100.0); MEAN PLATELET VOLUME 10.7 fL (7.4-10.4); NEUTROPHILS 77.9 % (40-80); PLATELET COUNT 244 10x3/uL (130-400); RBC 4.15 10x6/uL (4.20-6.10); RDW 12.8 % (11.5-14.5); WBC 10.4 10x3/uL (4.8-10.8)
[2018-03-12 05:20] LABS: CALC OSMOLALITY 281 mosm/kg (275-300); CALCIUM 8.1 mg/dL (8.5-10.1); CARBON DIOXIDE 36.9 mmol/L (21.0-32.0); CHLORIDE - SERUM 104 mmol/L (98-107); GLUCOSE 80 mg/dL (74-106); SODIUM 140 mmol/L (136-145); UREA NITROGEN 23 mg/dL (7-18); eGFR NON AFRICAN AMERICAN 77 mL/min (90-120)
[2018-03-12 09:19] VITALS: BP 139/85
[2018-03-12] MEDS ORDERED: ZITHROMAX250 MG PO (13:09)
[2018-03-12] MEDS ORDERED: OMNICEF300 MG PO (13:09)
[2018-03-12] MEDS ORDERED: PREDNISONE10 MG PO (13:13)
== END 2018-03-12 16:13 | disposition home or self-care (01) | DRG 193 ==
LOC: D.ER 06:56 → D.MS 08:44 → D.EDHOLD 08:44 → D.ICU 08:44 → D.M2 08:53 → D.ICU 10:20 → D.MS 03-08 17:07
PROVIDERS: Family Medicine; Internal Medicine Nephrology; Internal Medicine Pulmonary Disease
DX: J18.9 Pneumonia, unspecified organism (principal); J96.21 Acute and chronic respiratory failure with hypoxia; J96.22 Acute and chronic respiratory failure with hypercapnia; J44.1 Chronic obstructive pulmonary disease with (acute) exacerbation; J44.0 Chronic obstructive pulmonary disease with (acute) lower respiratory infection; J20.9 Acute bronchitis, unspecified; I10 Essential (primary) hypertension; I48.91 Unspecified atrial fibrillation; K21.9 Gastro-esophageal reflux disease without esophagitis; Z99.81 Dependence on supplemental oxygen; I27.20 Pulmonary hypertension, unspecified; E83.42 Hypomagnesemia; R47.1 Dysarthria and anarthria; R49.0 Dysphonia; R91.8 Other nonspecific abnormal finding of lung field; R41.82 Altered mental status, unspecified; T38.0X5A Adverse effect of glucocorticoids and synthetic analogues, initial encounter; Y92.239 Unspecified place in hospital as the place of occurrence of the external cause; G47.33 Obstructive sleep apnea (adult) (pediatric); D64.9 Anemia, unspecified; I07.1 Rheumatic tricuspid insufficiency

== ENCOUNTER 2018-03-21 07:18 | Observation (INO) | payer MEDICARE ==
[~2018-03-21] VITALS: Ht 182.9 cm; Wt 84.1 kg
[~2018-03-21 07:18] MED LIST changes: +OMNICEF300 MG PO; +PREDNISONE10 MG PO; +ZITHROMAX250 MG PO
[2018-03-21 08:23] LABS: HEMOGLOBIN 14.3 g/dL (13.5-17.5); MCH 32.1 pg (26.0-34.0); MCHC 33.3 g/dL (31.0-37.0); MCV 96.6 fL (80.0-100.0); MEAN PLATELET VOLUME 10.2 fL (7.4-10.4); PLATELET COUNT 251 10x3/uL (130-400); RBC 4.45 10x6/uL (4.20-6.10); RDW 13.7 % (11.5-14.5); WBC 20.8 10x3/uL (4.8-10.8)
[2018-03-21 08:34] LABS: ALBUMIN 3.5 g/dL (3.4-5.0); ANION GAP 8.7 mmol/L (8-16); BILIRUBIN - TOTAL 0.7 mg/dL (0.2-1.3); CALCIUM 8.4 mg/dL (8.5-10.1); CARBON DIOXIDE 32.6 mmol/L (21.0-32.0); CREATININE - SERUM 1.6 mg/dL (0.6-1.3); POTASSIUM - SERUM 4.3 mmol/L (3.5-5.1); PROTEIN - SERUM 6.1 g/dL (6.4-8.2)
[2018-03-21 08:46] LABS: APPEARANCE HAZY (CLEAR); BILIRUBIN NEGATIVE (NEGATIVE); COLOR YELLOW (YELLOW); GLUCOSE NEGATIVE (NEGATIVE); KETONE NEGATIVE (NEGATIVE); NITRITE NEGATIVE (NEGATIVE); PROTEIN NEGATIVE (NEGATIVE); SPECIFIC GRAVITY 1.025 (1.005-1.020); UROBILINOGEN NORMAL (NORMAL)
[2018-03-21 08:47] LABS: BACTERIA FEW /hpf (NONE SEEN); EPITHELIAL CELLS 0-5 /hpf (0-5); MUCUS <1+ /lpf (NONE SEEN); WHITE CELLS - URINE 0-5 /hpf (0-5)
[2018-03-21 08:50] LABS: INR 1.04 (0.85-1.17); PROTIME 13.2 SECONDS (11.6-15.0)
[2018-03-21 09:03] LABS: LYMPHOCYTES 5 % (15-50); MONOCYTES 8 % (2-11); NEUTROPHILS 83 % (40-80); PLATELET ESTIMATE NORMAL
[2018-03-21 12:48] LABS: HEMATOCRIT 42.8 % (42.0-54.0); HEMOGLOBIN 13.9 g/dL (13.5-17.5)
[2018-03-21 15:05] VITALS: BP 154/83; BMI 25.1
[2018-03-21 15:25] VITALS: BP 154/83
[2018-03-21 18:22] VITALS: BP 111/72
[2018-03-21 19:42] LABS: HEMOGLOBIN 12.9 g/dL (13.5-17.5)
[2018-03-21 21:31] VITALS: BP 122/79
[2018-03-22 05:13] VITALS: BP 123/82
[2018-03-22 07:10] LABS: BASOPHILS 0.1 % (0-2); EOSINOPHILS 1.5 % (0-7); HEMATOCRIT 39.7 % (42.0-54.0); HEMOGLOBIN 12.7 g/dL (13.5-17.5); IMMATURE GRANULOCYTES 1.3 % (0-5); LYMPHOCYTES 11.5 % (15-50); MCH 31.1 pg (26.0-34.0); MCV 97.3 fL (80.0-100.0); MEAN PLATELET VOLUME 10.2 fL (7.4-10.4); MONOCYTES 2.5 % (2-11); NEUTROPHILS 83.1 % (40-80); PLATELET COUNT 221 10x3/uL (130-400); RBC 4.08 10x6/uL (4.20-6.10); RDW 13.7 % (11.5-14.5)
[2018-03-22 07:18] LABS: WBC 14.2 10x3/uL (4.8-10.8)
[2018-03-22 07:45] LABS: ALBUMIN 2.7 g/dL (3.4-5.0); ALKALINE PHOSPHATASE 39 U/L (46-116); ALT (SGPT) 33 U/L (10-68); BILIRUBIN - TOTAL 0.84 mg/dL (0.2-1.3); CALC OSMOLALITY 289 mosm/kg (275-300); CALCIUM 7.7 mg/dL (8.5-10.1); CARBON DIOXIDE 29.3 mmol/L (21.0-32.0); CHLORIDE - SERUM 106 mmol/L (98-107); GLUCOSE 97 mg/dL (74-106); POTASSIUM - SERUM 4.1 mmol/L (3.5-5.1); PROTEIN - SERUM 5.3 g/dL (6.4-8.2); SODIUM 142 mmol/L (136-145); UREA NITROGEN 31 mg/dL (7-18); eGFR NON AFRICAN AMERICAN 77 mL/min (90-120)
[2018-03-22 08:31] VITALS: BP 118/76
[2018-03-22 13:20] VITALS: BP 127/75
[2018-03-22 13:53] VITALS: Ht 182.9 cm; Wt 84.1 kg
== END 2018-03-22 15:25 | disposition home or self-care (01) ==
LOC: D.ER 07:18 → D.EDHOLD 11:31 → OBSVTIME 11:31 → D.MS 12:38 → D.EDHOLD 12:43 → D.MS 13:59
PROVIDERS: Family Medicine
DX: M79.81 Nontraumatic hematoma of soft tissue (principal); D62 Acute posthemorrhagic anemia; J96.11 Chronic respiratory failure with hypoxia; J96.12 Chronic respiratory failure with hypercapnia; J18.9 Pneumonia, unspecified organism; I10 Essential (primary) hypertension; N17.9 Acute kidney failure, unspecified; I27.20 Pulmonary hypertension, unspecified; J43.9 Emphysema, unspecified; Z87.891 Personal history of nicotine dependence

== ENCOUNTER → 2018-05-01 14:20 | Outpatient (CLI) | payer MEDICARE ==
[2018-03-22 13:53] VITALS: BMI 25.1
== END | disposition home or self-care (01) ==
LOC: D.RAD 14:20
DX: J44.9 Chronic obstructive pulmonary disease, unspecified (principal)

== ENCOUNTER → 2018-05-01 15:07 | Outpatient (CLI) | payer MEDICARE ==
[2018-03-22 13:53] VITALS: BMI 25.1
== END | disposition home or self-care (01) ==
LOC: D.LABREF 15:07
DX: R05 Cough (principal)

== ENCOUNTER → 2018-05-08 09:58 | Outpatient (CLI) | payer MEDICARE ==
[2018-03-22 13:53] VITALS: BMI 25.1
== END | disposition home or self-care (01) ==
LOC: D.CT 09:58
DX: R39.89 Other symptoms and signs involving the genitourinary system (principal)

== ENCOUNTER → 2018-09-14 14:51 | Outpatient (CLI) | payer MEDICARE ==
[2018-03-22 13:53] VITALS: BMI 25.1
== END | disposition home or self-care (01) ==
LOC: D.CT 09-13 11:30
PROVIDERS: ATTEND Internal Medicine Pulmonary Disease
DX: J44.9 Chronic obstructive pulmonary disease, unspecified (principal); R93.89 Abnormal findings on diagnostic imaging of other specified body structures

== ENCOUNTER 2019-03-26 18:07 | Inpatient (IN) | payer MEDICARE ==
[~2019-03-26] VITALS: Ht 182.9 cm; Wt 65.9 kg
[2019-03-26 19:00] LABS: BASOPHILS 0.6 % (0-2); EOSINOPHILS 1.9 % (0-7); HEMATOCRIT 41.2 % (42.0-54.0); HEMOGLOBIN 14.2 g/dL (13.5-17.5); IMMATURE GRANULOCYTES 0.6 % (0-5); LYMPHOCYTES 9.4 % (15-50); MCH 31.4 pg (26.0-34.0); MCHC 34.5 g/dL (31.0-37.0); MCV 91.2 fL (80.0-100.0); MEAN PLATELET VOLUME 10.4 fL (7.4-10.4); MONOCYTES 11.9 % (2-11); NEUTROPHILS 75.6 % (40-80); RBC 4.52 10x6/uL (4.20-6.10); RDW 13.7 % (11.5-14.5); WBC 10.2 10x3/uL (4.8-10.8)
[2019-03-26 19:02] LABS: PLATELET COUNT 342 10x3/uL (130-400)
[2019-03-26 19:14] LABS: ALBUMIN 2.9 g/dL (3.4-5.0); ALKALINE PHOSPHATASE 84 U/L (46-116); ALT (SGPT) 301 U/L (10-68); AMYLASE - SERUM 37 U/L (25-115); BILIRUBIN - TOTAL 0.79 mg/dL (0.2-1.3); CALC OSMOLALITY 280 mosm/kg (275-300); CALCIUM 8.3 mg/dL (8.5-10.1); CHLORIDE - SERUM 103 mmol/L (98-107); CREATININE - SERUM 0.9 mg/dL (0.6-1.3); GLUCOSE 100 mg/dL (74-106); LIPASE 84 U/L (73-393); POTASSIUM - SERUM 4.7 mmol/L (3.5-5.1); PROTEIN - SERUM 5.8 g/dL (6.4-8.2); SODIUM 139 mmol/L (136-145); UREA NITROGEN 21 mg/dL (7-18); eGFR NON AFRICAN AMERICAN 87 mL/min (90-120)
[2019-03-26 21:11] LABS: APPEARANCE CLEAR (CLEAR); COLOR YELLOW (YELLOW)
[2019-03-26 21:12] LABS: BILIRUBIN NEGATIVE (NEGATIVE); GLUCOSE NEGATIVE (NEGATIVE); KETONE NEGATIVE (NEGATIVE); NITRITE NEGATIVE (NEGATIVE); PROTEIN NEGATIVE (NEGATIVE); SPECIFIC GRAVITY 1.025 (1.005-1.020)
[2019-03-27] VITALS (7 sets, daily range): BP systolic 91–139; BP diastolic 34–83; Ht 182.9 cm; Wt 65.9 kg
[2019-03-27] MEDS ORDERED: PACERONE100 MG PO (01:02)
[2019-03-27] MEDS ORDERED: FUROSEMIDE20 MG PO (01:02)
[2019-03-27] MEDS ORDERED: MOVANTIK25 MG (01:03)
[2019-03-27] MEDS ORDERED: FAMOTIDINE10 MG PO (01:03)
--- NOTE | 2019-03-27 03:25 | NUR ---
I have reviewed this patient and I concur with the Shift Assessment completed by the Licensed Practical Nurse today this shift.
[2019-03-27 04:56] LABS: BASOPHILS 0.4 % (0-2); EOSINOPHILS 2.3 % (0-7); HEMATOCRIT 40.6 % (42.0-54.0); HEMOGLOBIN 13.5 g/dL (13.5-17.5); IMMATURE GRANULOCYTES 0.7 % (0-5); MCH 31.1 pg (26.0-34.0); MCHC 33.3 g/dL (31.0-37.0); MEAN PLATELET VOLUME 10.5 fL (7.4-10.4); MONOCYTES 10.9 % (2-11); NEUTROPHILS 76.7 % (40-80); PLATELET COUNT 309 10x3/uL (130-400); RBC 4.34 10x6/uL (4.20-6.10); RDW 13.7 % (11.5-14.5); WBC 9.2 10x3/uL (4.8-10.8)
[2019-03-27 04:58] LABS: MCV 93.5 fL (80.0-100.0)
[2019-03-27 05:14] LABS: ALBUMIN 2.4 g/dL (3.4-5.0); ALKALINE PHOSPHATASE 72 U/L (46-116); ALT (SGPT) 273 U/L (10-68); BILIRUBIN - TOTAL 0.64 mg/dL (0.2-1.3); CALC OSMOLALITY 278 mosm/kg (275-300); CALCIUM 7.6 mg/dL (8.5-10.1); CARBON DIOXIDE 33.9 mmol/L (21.0-32.0); CHLORIDE - SERUM 104 mmol/L (98-107); CREATININE - SERUM 0.9 mg/dL (0.6-1.3); GLUCOSE 86 mg/dL (74-106); POTASSIUM - SERUM 4.1 mmol/L (3.5-5.1); PROTEIN - SERUM 5.6 g/dL (6.4-8.2); SODIUM 140 mmol/L (136-145); UREA NITROGEN 16 mg/dL (7-18); eGFR NON AFRICAN AMERICAN 87 mL/min (90-120)
--- NOTE | 2019-03-27 07:37 | NUR ---
PATIENT IS RESTING QUIETLY AT THIS TIME. EYES CLOSED.
[2019-03-28] VITALS: BP 102/58
[2019-03-28 04:00] VITALS: BP 119/57
[2019-03-28 04:24] LABS: BASOPHILS 0.2 % (0-2); EOSINOPHILS 3.2 % (0-7); HEMATOCRIT 36.4 % (42.0-54.0); HEMOGLOBIN 12.2 g/dL (13.5-17.5); IMMATURE GRANULOCYTES 0.6 % (0-5); LYMPHOCYTES 8.5 % (15-50); MCH 31.4 pg (26.0-34.0); MCHC 33.5 g/dL (31.0-37.0); MCV 93.6 fL (80.0-100.0); MEAN PLATELET VOLUME 10.1 fL (7.4-10.4); MONOCYTES 11.1 % (2-11); NEUTROPHILS 76.4 % (40-80); PLATELET COUNT 295 10x3/uL (130-400); RBC 3.89 10x6/uL (4.20-6.10); RDW 13.9 % (11.5-14.5); WBC 10.8 10x3/uL (4.8-10.8)
[2019-03-28 04:56] LABS: ALKALINE PHOSPHATASE 72 U/L (46-116); ALT (SGPT) 230 U/L (10-68); BILIRUBIN - TOTAL 0.39 mg/dL (0.2-1.3); CALC OSMOLALITY 274 mosm/kg (275-300); CALCIUM 7.5 mg/dL (8.5-10.1); CARBON DIOXIDE 31.9 mmol/L (21.0-32.0); CHLORIDE - SERUM 104 mmol/L (98-107); CREATININE - SERUM 0.7 mg/dL (0.6-1.3); GLUCOSE 96 mg/dL (74-106); MAGNESIUM - SERUM 1.4 mg/dL (1.8-2.4); POTASSIUM - SERUM 4.1 mmol/L (3.5-5.1); SODIUM 137 mmol/L (136-145); UREA NITROGEN 14 mg/dL (7-18); eGFR NON AFRICAN AMERICAN > 90 mL/min (90-120)
[2019-03-28 08:00] VITALS: BP 114/63
--- NOTE | 2019-03-28 11:49 | NUR ---
I have reviewed this patient and I concur with the Shift Assessment completed by the Licensed Practical Nurse today this shift.
[2019-03-28 12:00] VITALS: BP 102/49
--- NOTE | 2019-03-28 13:46 | NUR ---
SCD'S PLACED ON PT'S LEGS.
[2019-03-28 16:00] VITALS: BP 112/43
--- NOTE | 2019-03-28 17:33 | NUR ---
PT C/O ACID REFLUX. SPOKE WITH ELAINE TAVERAS AND HE STATED TO UP PROTONIX PO TO BID AND GIVE A ONE TIME DOSE OF MILK OF MAG. I VERBALIZED UNDERSTANDING.
--- NOTE | 2019-03-28 19:58 | NUR ---
PT CARE ASSUMED. RR EVEN AND UNLABORED. NO S/S OF DISTRESS NOTED. AT BEDSIDE. PROVIDED SNACK. NO FURTHER NEEDS EXPRESSED AT THIS TIME. CALL LIGHT IN REACH. WILL CTM.
[2019-03-29] VITALS: BP 101/50
[2019-03-29 04:00] VITALS: BP 113/62
[2019-03-29 05:33] LABS: BASOPHILS 0.2 % (0-2); EOSINOPHILS 4.1 % (0-7); HEMATOCRIT 37.3 % (42.0-54.0); HEMOGLOBIN 12.7 g/dL (13.5-17.5); IMMATURE GRANULOCYTES 0.7 % (0-5); MCH 31.9 pg (26.0-34.0); MCV 93.7 fL (80.0-100.0); MONOCYTES 11.2 % (2-11); NEUTROPHILS 74.8 % (40-80); PLATELET COUNT 284 10x3/uL (130-400); RBC 3.98 10x6/uL (4.20-6.10); RDW 13.8 % (11.5-14.5); WBC 8.5 10x3/uL (4.8-10.8)
[2019-03-29 06:09] LABS: ALBUMIN 2.2 g/dL (3.4-5.0); ALKALINE PHOSPHATASE 62 U/L (46-116); ALT (SGPT) 192 U/L (10-68); BILIRUBIN - TOTAL 0.36 mg/dL (0.2-1.3); CALCIUM 7.8 mg/dL (8.5-10.1); CARBON DIOXIDE 31.5 mmol/L (21.0-32.0); CHLORIDE - SERUM 104 mmol/L (98-107); CREATININE - SERUM 0.7 mg/dL (0.6-1.3); GLUCOSE 95 mg/dL (74-106); POTASSIUM - SERUM 4.5 mmol/L (3.5-5.1); PROTEIN - SERUM 5.1 g/dL (6.4-8.2); SODIUM 138 mmol/L (136-145); eGFR NON AFRICAN AMERICAN > 90 mL/min (90-120)
[2019-03-29 06:12] LABS: CALC OSMOLALITY 274 mosm/kg (275-300); MAGNESIUM - SERUM 1.8 mg/dL (1.8-2.4); UREA NITROGEN 10 mg/dL (7-18)
--- NOTE | 2019-03-29 07:30 | NUR ---
A/A/OX4. DENIES ANY PAIN OR SOB AT PRESENT TIME. 02 ON PER NC AT 4 L/M. NO REQUESTS VOICED. ASSESSMENT COMPLETED AND WILL CONTINUE POC. IV PATENT TO LEFT WRIST WITH NS INFUSING AT 20 CC/HR. NO REDNESS OR EDEMA NOTED AT SITE.
[2019-03-29 08:00] VITALS: BP 102/67
[2019-03-29 12:00] VITALS: BP 103/56
--- NOTE | 2019-03-29 13:21 | NUR ---
Nutrition Follow-up: Pt reports that he is not eating very well. Likes Ensure. C/o nausea; no vomiting. Diet: Regular, Ensure with meals PO intake: 48% avg x 6 meals Wt: 160# Last BM: 03/26 per pt Labs noted: Ca 7.8 Meds reviewed Continue current diet/supplements as tolerated. Encourage PO intake. [place] food preferences. RD following.
--- NOTE | 2019-03-29 13:59 | NUR ---
I have reviewed this patient and I concur with the Shift Assessment completed by the Licensed Practical Nurse today this shift.
[2019-03-29 16:18] VITALS: BP 112/52
--- NOTE | 2019-03-29 19:28 | NUR ---
PT CARE ASSUMED. BEDSIDE SHIFT REPORT COMPLETE. PT SITTING UP ON SIDE OF BED. C/O "BELCHING" RR EVEN AND UNLABORED ON 4L NC. NO S/S OF DISTRESS NOTED. ENCOURAGED CALL LIGHT FOR ASSISTANCE. NO FURTHER NEEDS EXPRESSED. WILL CTM.
[2019-03-29 20:00] VITALS: BP 118/66
[2019-03-30] VITALS (7 sets, daily range): BP systolic 107–138; BP diastolic 57–67
[2019-03-30 06:40] LABS: BASOPHILS 0.2 % (0-2); EOSINOPHILS 2.8 % (0-7); HEMATOCRIT 37.5 % (42.0-54.0); HEMOGLOBIN 12.4 g/dL (13.5-17.5); IMMATURE GRANULOCYTES 0.8 % (0-5); LYMPHOCYTES 6.3 % (15-50); MCH 31.1 pg (26.0-34.0); MCHC 33.1 g/dL (31.0-37.0); MEAN PLATELET VOLUME 10.2 fL (7.4-10.4); MONOCYTES 12.1 % (2-11); NEUTROPHILS 77.8 % (40-80); PLATELET COUNT 312 10x3/uL (130-400); RBC 3.99 10x6/uL (4.20-6.10); RDW 13.9 % (11.5-14.5)
[2019-03-30 06:57] LABS: ALBUMIN 2.2 g/dL (3.4-5.0); ALKALINE PHOSPHATASE 69 U/L (46-116); ALT (SGPT) 151 U/L (10-68); BILIRUBIN - TOTAL 0.38 mg/dL (0.2-1.3); CALC OSMOLALITY 274 mosm/kg (275-300); CALCIUM 7.6 mg/dL (8.5-10.1); CARBON DIOXIDE 33.1 mmol/L (21.0-32.0); CHLORIDE - SERUM 103 mmol/L (98-107); CREATININE - SERUM 0.7 mg/dL (0.6-1.3); GLUCOSE 88 mg/dL (74-106); MAGNESIUM - SERUM 1.8 mg/dL (1.8-2.4); POTASSIUM - SERUM 5.1 mmol/L (3.5-5.1); SODIUM 138 mmol/L (136-145); UREA NITROGEN 12 mg/dL (7-18); eGFR NON AFRICAN AMERICAN > 90 mL/min (90-120)
--- NOTE | 2019-03-30 07:40 | NUR ---
A/A/OX4. DENIES ANY PROBLEMS AT THIS TIME AND NO REQUESTS VOICED. 02 ON VIA N/C AT 4 L/M AND IV INFUSING WELL TO LEFT WRIST WITHOUT REDNESS OR EDEMA. ASSESSMENT COMPLETED AND WILL CONTINUE POC.
--- NOTE | 2019-03-30 16:24 | NUR ---
I have reviewed this patient and I concur with the Shift Assessment completed by the Licensed Practical Nurse today this shift.
--- NOTE | 2019-03-30 19:39 | NUR ---
PT CARE ASSUMED. BEDISDE SHIFT REPORT COMPLETE. ASSISTED PT TO RESTROOM X1 ASST. GAIT SLOW AND UNSTEADY. PT SOB ON EXERTION. DENIES NEEDS AT THIS TIME. CALL LIGHT IN REACH. WILL CPOC.
--- NOTE | 2019-03-31 00:58 | NUR ---
PT CALLED FOR ASSISTANCE. IV LEAKING TO LEFT WRIST. D/C WITH CATHETER TIP INTACT.
[2019-03-31 04:13] VITALS: BP 132/61
[2019-03-31 06:09] LABS: BASOPHILS 0.3 % (0-2); EOSINOPHILS 2.4 % (0-7); HEMATOCRIT 36.1 % (42.0-54.0); IMMATURE GRANULOCYTES 0.7 % (0-5); LYMPHOCYTES 6.4 % (15-50); MCH 31.2 pg (26.0-34.0); MCHC 33.2 g/dL (31.0-37.0); MCV 93.8 fL (80.0-100.0); MEAN PLATELET VOLUME 10.3 fL (7.4-10.4); MONOCYTES 11.5 % (2-11); NEUTROPHILS 78.7 % (40-80); PLATELET COUNT 326 10x3/uL (130-400); RBC 3.85 10x6/uL (4.20-6.10); WBC 9.2 10x3/uL (4.8-10.8)
[2019-03-31 06:33] LABS: ALBUMIN 2.3 g/dL (3.4-5.0); ALKALINE PHOSPHATASE 69 U/L (46-116); ALT (SGPT) 119 U/L (10-68); BILIRUBIN - TOTAL 0.47 mg/dL (0.2-1.3); CALC OSMOLALITY 277 mosm/kg (275-300); CALCIUM 7.7 mg/dL (8.5-10.1); CARBON DIOXIDE 34.8 mmol/L (21.0-32.0); CHLORIDE - SERUM 103 mmol/L (98-107); CREATININE - SERUM 0.7 mg/dL (0.6-1.3); GLUCOSE 93 mg/dL (74-106); MAGNESIUM - SERUM 1.8 mg/dL (1.8-2.4); POTASSIUM - SERUM 5.1 mmol/L (3.5-5.1); SODIUM 139 mmol/L (136-145); UREA NITROGEN 12 mg/dL (7-18); eGFR NON AFRICAN AMERICAN > 90 mL/min (90-120)
--- NOTE | 2019-03-31 06:37 | NUR ---
IV RESITED TO LEFT HAND 22G. PT TOLERATED WELL.
--- NOTE | 2019-03-31 07:00 | NUR ---
RECEIVED REPORT. ASSUMED CARE OF PATIENT. CALL LIGHT WITHIN REACH. RESTING IN BED WITH EYES OPEN. PATIENT DENIES NEEDS AT THIS TIME. IV ABX INFUSING AT THIS TIME. NO DISTRESS.
[2019-03-31 08:00] VITALS: BP 99/82
--- NOTE | 2019-03-31 08:15 | NUR ---
RETURN TO UNIT VIA WHEELCHAIR FROM RADIOLOGY. NO DISTRESS. CALL LIGHT PLACED WITHIN REACH.
--- NOTE | 2019-03-31 11:05 | NUR ---
ASSISTED PATIENT BACK TO BED FROM RESTROOM AT THIS TIME. NO DISTRESS.
[2019-03-31 12:00] VITALS: BP 117/61
--- NOTE | 2019-03-31 13:30 | NUR ---
HUMIDIFICATION PLACED ON OXYGEN AT THIS TIME. NO DISTRESS.
--- NOTE | 2019-03-31 15:30 | NUR ---
URINAL EMPTYED. PROVIDED PATIENT WITH FRESH ICE WATER. NO DISTRESS. CALL LIGHT WITHIN REACH.
[2019-03-31 16:11] VITALS: BP 112/59
--- NOTE | 2019-03-31 18:34 | NUR ---
RESTING IN BED. NO DISTRESS. ATTENTION TOWARD TELEVISION. CALL LIGHT AND PHONE WITHIN REACH. NO DISTRESS.
--- NOTE | 2019-03-31 19:24 | NUR ---
RECIEVED BEDSIDE REPORT. ALERT AND ORIENTED X4. REQUEST SBA WITH AMBULATION. IV TO LEFT HAND WITH NS AT 20CC/HR. NO REDNESS OR SWELLING TO SITE. HERNIA TO RIGHTY GROIN. O2 @ 4.5 LITERS PER N/C IN PLACE. VERY THREE AFFILIATED. FREQUENT PRODUCTIVE COUGH. SPUTUM CLEAR. DENIES ANY NEEDS AT THIS TIME.
[2019-03-31 20:04] VITALS: BP 124/66
[2019-03-31 23:23] VITALS: BP 114/64
[2019-04-01 04:00] VITALS: BP 116/71
[2019-04-01 06:11] LABS: ALBUMIN 2.5 g/dL (3.4-5.0); ALKALINE PHOSPHATASE 69 U/L (46-116); ALT (SGPT) 107 U/L (10-68); BILIRUBIN - TOTAL 0.54 mg/dL (0.2-1.3); CALC OSMOLALITY 269 mosm/kg (275-300); CALCIUM 8.1 mg/dL (8.5-10.1); CARBON DIOXIDE 33.3 mmol/L (21.0-32.0); CHLORIDE - SERUM 100 mmol/L (98-107); CREATININE - SERUM 0.7 mg/dL (0.6-1.3); GLUCOSE 91 mg/dL (74-106); MAGNESIUM - SERUM 1.7 mg/dL (1.8-2.4); POTASSIUM - SERUM 5.2 mmol/L (3.5-5.1); PROTEIN - SERUM 5.5 g/dL (6.4-8.2); SODIUM 135 mmol/L (136-145); UREA NITROGEN 13 mg/dL (7-18); eGFR NON AFRICAN AMERICAN > 90 mL/min (90-120)
[2019-04-01 06:25] LABS: BASOPHILS 0.2 % (0-2); EOSINOPHILS 3.5 % (0-7); HEMATOCRIT 37.8 % (42.0-54.0); HEMOGLOBIN 12.6 g/dL (13.5-17.5); IMMATURE GRANULOCYTES 0.7 % (0-5); MCH 30.8 pg (26.0-34.0); MCHC 33.3 g/dL (31.0-37.0); MCV 92.4 fL (80.0-100.0); MEAN PLATELET VOLUME 10.4 fL (7.4-10.4); MONOCYTES 10.2 % (2-11); NEUTROPHILS 76.4 % (40-80); PLATELET COUNT 390 10x3/uL (130-400); RBC 4.09 10x6/uL (4.20-6.10); RDW 13.9 % (11.5-14.5)
--- NOTE | 2019-04-01 07:00 | NUR ---
RECEIVED REPORT. ASSUMED CARE OF PATIENT. CALL LIGHT WITHIN REACH. DENIES NEEDS. NO DISTRESS.
--- NOTE | 2019-04-01 07:30 | NUR ---
ASSISTED PATIENT OOB TO RESTROOM AND BACK TO BED. PATIENT REQUEST STAND BY ASSIST. NO DISTRESS. CALL LIGHT WITHIN REACH.
[2019-04-01 08:00] VITALS: BP 140/62
[2019-04-01 12:00] VITALS: BP 106/60
--- NOTE | 2019-04-01 12:54 | NUR ---
PER NURSING MESSAGE, DIET CHANGED TO MECHANICAL SOFT.
--- NOTE | 2019-04-01 14:00 | NUR ---
COMPLETE BATH AND LINEN CHANGE PROVIDED. TOLERATED WELL. NO DISTRESS.
[2019-04-01 16:00] VITALS: BP 104/56
--- NOTE | 2019-04-01 17:36 | NUR ---
NEW IV TUBING HUNG AT THIS TIME. NO DISTRESS. CALL LIGHT WITHIN REACH.
--- NOTE | 2019-04-01 19:25 | NUR ---
AWAKE AND ALERT BED IS LOW AND LOCKED CALL LIGHT IS WITH PT DEMINISHED IN LOWER BASES SKIN WARM AND DRY CO SHORT OF BRERATH O2 AT 4.5 LITER NC SPO2 95%
[2019-04-01 20:23] VITALS: BP 105/54
[2019-04-02 00:11] VITALS: BP 102/60
--- NOTE | 2019-04-02 00:57 | NUR ---
I have reviewed this patient and I concur with the Shift Assessment completed by the Licensed Practical Nurse today this shift.
[2019-04-02 04:24] VITALS: BP 119/65
[2019-04-02 05:05] LABS: BASOPHILS 0.2 % (0-2); EOSINOPHILS 2.6 % (0-7); HEMATOCRIT 34.7 % (42.0-54.0); HEMOGLOBIN 11.6 g/dL (13.5-17.5); IMMATURE GRANULOCYTES 0.4 % (0-5); LYMPHOCYTES 6.3 % (15-50); MCH 30.5 pg (26.0-34.0); MCHC 33.4 g/dL (31.0-37.0); MCV 91.3 fL (80.0-100.0); MEAN PLATELET VOLUME 10.2 fL (7.4-10.4); MONOCYTES 11.6 % (2-11); NEUTROPHILS 78.9 % (40-80); PLATELET COUNT 367 10x3/uL (130-400); RDW 13.9 % (11.5-14.5); WBC 10.2 10x3/uL (4.8-10.8)
[2019-04-02 05:45] LABS: ALBUMIN 2.2 g/dL (3.4-5.0); ALKALINE PHOSPHATASE 57 U/L (46-116); BILIRUBIN - TOTAL 0.55 mg/dL (0.2-1.3); CALC OSMOLALITY 272 mosm/kg (275-300); CALCIUM 8.1 mg/dL (8.5-10.1); CARBON DIOXIDE 34.9 mmol/L (21.0-32.0); CHLORIDE - SERUM 99 mmol/L (98-107); CREATININE - SERUM 0.8 mg/dL (0.6-1.3); GLUCOSE 90 mg/dL (74-106); MAGNESIUM - SERUM 1.6 mg/dL (1.8-2.4); PROTEIN - SERUM 5.5 g/dL (6.4-8.2); SODIUM 136 mmol/L (136-145); UREA NITROGEN 14 mg/dL (7-18); eGFR NON AFRICAN AMERICAN > 90 mL/min (90-120)
[2019-04-02 05:52] LABS: ALT (SGPT) 79 U/L (10-68); POTASSIUM - SERUM 4.1 mmol/L (3.5-5.1)
--- NOTE | 2019-04-02 06:12 | NUR ---
UNABLE TO GIVE MAXIPIME AT THIS TIME NOT AVAILABLE IN [facility]
--- NOTE | 2019-04-02 07:40 | NUR ---
RECIEVED REPORT. RESTING IN BED WITH EYES CLOSED. RESPIRATIONS NONLABORED. CONTINUE PLAN OF CARE AND SAFETY PRECAUTIONS.
[2019-04-02 07:53] VITALS: BP 110/58
[2019-04-02 11:19] VITALS: BP 108/58
--- NOTE | 2019-04-02 11:20 | NUR ---
ALERT AND ORIENTED X4. SITTING UP IN CHAIR. BP ON MACHINE 89/42. MANUALLY CHECK BP. ACTUAL BP-108/58.
--- NOTE | 2019-04-02 13:26 | MORECARE ---
CASE MANAGEMENT DISCHARGE SUMMARY PATIENT: SONU GALLARDO UNIT: [id number] ADM DATE: 03/26/19 AGE: 79 : 42 SEX: M ROOM/BED: D.2139 AUTHOR: RED WYATT PHYSICIAN: REFERRING PHYSICIAN: PETER FOWLER MD DATE OF SERVICE: 04/02/19 Discharge Plan Patient Name: SONU GALLARDO Facility: [facility]:[place] : 1940 Planned Disposition: Home Anticipated Discharge Date: Discharge Date: Expected LOS: Initial Reviewer: [id number] Initial Review Date: 04/02/2019 Generated: 04/02/19 2:26 pm DCPIA - Discharge Planning Initial Assessment Updated by [email or web address]: Zoltan Mcghee on 04/02/19 1:26 pm * Is the patient Alert and Oriented? Yes * How many steps to enter\exit or inside your home? NONE * PCP DR. ESTRELLA * Pharmacy [facility] [place] * Preadmission Environment Home with Family * ADLs Independent * Equipment Nebulizer Oxygen Power Chair or Electric Scooter * Other Equipment HOME AND PORTABLE OXYGEN 2LNC [employer] * List name and contact numbers for known caregivers / representatives who currently or will assist patient after discharge: JEWELS GALLARDO, SPOUSE, ULYSSES OLIVIA, GDTR, * Verbal permission to speak to the caregivers and representatives has been obtained from the patient. N/A * Community resources currently utilized None * Please name any agencies selected above. NONE * Additional services required to return to the preadmission environment? No * Can the patient safely return to the preadmission environment? Yes * Has this patient been hospitalized within the prior 30 days at any hospital? No Coverage Notice Reviewer: [email or web address] - Zoltan Mcghee Notice Issued Date-Time: 04/02/2019 13:15 Notice Type: IM Discharge Notice Notice Delivered To: Patient Relationship to Patient: Patient Office Rep Name: Delivery Method: HAND - Hand Delivered Saira Days: Prior Verbal Notification: Recipient Understood Notice: Yes Recipient Signature: Yes Med Rec Note Co-signed by Attending: Coverage Notice Comment: Patient Name: SONU GALLARDO Page [phone] at 1326 All edits/amendments must be made on the electronic document DICTATION DATE: 04/02/19 1326 HEAD OF MUSIC: MANJIT 04/02/19 1326 RPT#: [id number] DC DATE: STATUS: ADM IN [facility] [address] [place] [address] END OF REPORT
--- NOTE | 2019-04-02 13:34 | MORECARE ---
CASE MANAGEMENT DISCHARGE SUMMARY PATIENT: SONU GALLARDO UNIT: [id number] ADM DATE: 03/26/19 AGE: 79 : 42 SEX: M ROOM/BED: D.2139 AUTHOR: YOSELIN,DOC PHYSICIAN: REFERRING PHYSICIAN: PETER FOWLER MD DATE OF SERVICE: 04/02/19 Discharge Plan Patient Name: SONU GALLARDO Facility: [facility]:[place] : 1940 Planned Disposition: Home Anticipated Discharge Date: Discharge Date: Expected LOS: Initial Reviewer: [email or web address] Initial Review Date: 04/02/2019 Generated: 04/02/19 2:34 pm Comments DCP- Discharge Planning Updated by [email or web address]: Zoltan Mcghee on 04/02/19 12:[address] Patient Name: SONU GALLARDO Admission Status: ER Accout number: [id number] Admission Date: 03-26-2019 : 1940 Admission Diagnosis:LOCALIZED SWELLING, MASS AND LUMP, TRUNK Attending: JEANINE FOWLER Current LOS: 7 Anticipated DC Date: Planned Disposition: Home Primary Insurance: MEDICARE A & B Discharge Planning Comments: CM MET WITH PT IN ROOM TO DISCUSS DISCHARGE PLANNING AND NEEDS. PT REPORTS LIVING AT HOME INDEPENDENTLY WITH HIS . PT NEBULIZER, HOME AND PORTABLE OXGYEN AND A SCOOTER; PT HAS NO MEDICAL EQUIPMENT PROVIDER PREFERENCE AND NO OUTSIDE SERVICES ASSISTING IN THE HOME. CM DISCUSSED AVAILABILITY OF HOME HEALTH, REHAB SERVICES AND MEDICAL EQUIPMENT. PT DENIES DISCHARGE NEEDS, REPORTS HIS STEP DAUGHTER WILL PICK HIM UP FOR DISCHARGE HOME. IMPORTANT MESSAGE FROM MEDICARE PROVIDED AND EXPLAINED PT PLANS TO DISCHARGE HOME WITH SPOUSE, STEP DAUGHTER TO COMMUNITY NUTRITION EDUCATOR AT DISCHARGE. PT HAS NO ANTICIPATED DISCHARGE NEEDS AT THIS TIME. CM TO FOLLOW AND ASSIST NEEDED. Automotive General Manager: Zoltan Mcghee DCPIA - Discharge Planning Initial Assessment Updated by [email or web address]: Zoltan Mcghee on 04/02/19 1:26 pm * Is the patient Alert and Oriented? Yes * How many steps to enter\exit or inside your home? NONE * PCP DR. ESTRELLA * Pharmacy [facility] * Preadmission Environment Home with Family * ADLs Independent * Equipment Nebulizer Oxygen Power Chair or Electric Scooter * Other Equipment HOME AND PORTABLE OXYGEN 2LNC [employer] * List name and contact numbers for known caregivers / representatives who currently or will assist patient after discharge: JEWELS GALLARDO, SPOUSE, ULYSSES BAKER, GDTR, * Verbal permission to speak to the caregivers and representatives has been obtained from the patient. N/A * Community resources currently utilized None * Please name any agencies selected above. NONE * Additional services required to return to the preadmission environment? No * Can the patient safely return to the preadmission environment? Yes * Has this patient been hospitalized within the prior 30 days at any hospital? No Coverage Notice Reviewer: [id number] Nisa Mcghee Notice Issued Date-Time: 04/02/2019 13:15 Notice Type: IM Discharge Notice Notice Delivered To: Patient Relationship to Patient: Requirements Engineer Name: Delivery Method: HAND - Hand Delivered Saira Days: Prior Verbal Notification: Recipient Understood Notice: Yes Recipient Signature: Yes Med Rec Note Co-signed by Attending: Coverage Notice Comment: Last DP export: 04/02/19 12:26 p Patient Name: SONU GALLARDO Page [phone] at 1334 All edits/amendments must be made on the electronic document DICTATION DATE: 04/02/19 1334 REFRIGERATOR MOVER: MANJIT 04/02/19 1334 RPT#: [id number] DC DATE: STATUS: ADM IN [facility] [address] [place] [address] END OF REPORT
--- NOTE | 2019-04-02 14:02 | NUR ---
ALERT AND ORIENTED X4. SITTING UP IN CHAIR. REPORTS PAIN IN CHEST WHEN COUGHING. O2 @ 2.5LNC. CONSENTS FOR PROCEDURE SIGNED ON CHART. DENIES ANY NEEDS AT THIS TIME. CONTINUE PLAN OF CARE AND SAFETY PRECAUTIONS.
--- NOTE | 2019-04-02 15:05 | NUR ---
Nutrition Follow-up: Pt reports increase in appetite/PO intake. Almost all of lunch eaten and noted 100% of breakfast with 100% of Ensure eaten this AM. Megace started 04/01. Diet: Regular, Mechanical Soft, Ensure with meals No new wt Last BM: 04/01 Labs noted: Ca 8.1, Mg 1.6 Meds noted: Lasix, MagOx, Megace Continue current diet/supplement as tolerated. RD following.
[2019-04-02 15:37] VITALS: BP 100/59
--- NOTE | 2019-04-02 17:01 | NUR ---
ALERT AND ORIENTED X4. SITTING UP IN BED. REPORTS CHEST PAIN WHEN COUGH. EKG COMPLETE ON CHART SHOWS SINUS RHYTHM. DENIES ANY OTHER NEEDS. CONTINUE PLAN OF CARE AND SAFETY PRECAUTIONS.
[2019-04-02 20:00] VITALS: BP 107/69
--- NOTE | 2019-04-02 20:00 | NUR ---
ALERT AND ORIENTIATED, SITTING UP IN BED DENIES PAIN OR NEEDS AT THIS TIME, SEE SHIFT ASSESSMENT, CALL LIGHT IN REACH
[2019-04-03] VITALS: BP 129/73
--- NOTE | 2019-04-03 04:51 | NUR ---
I have reviewed this patient and I concur with the Shift Assessment completed by the Licensed Practical Nurse today this shift.
[2019-04-03 06:09] LABS: BASOPHILS 0.3 % (0-2); EOSINOPHILS 2.7 % (0-7); HEMATOCRIT 36.7 % (42.0-54.0); HEMOGLOBIN 12.4 g/dL (13.5-17.5); IMMATURE GRANULOCYTES 0.5 % (0-5); LYMPHOCYTES 7.8 % (15-50); MCH 30.9 pg (26.0-34.0); MCHC 33.8 g/dL (31.0-37.0); MCV 91.5 fL (80.0-100.0); MEAN PLATELET VOLUME 10.3 fL (7.4-10.4); MONOCYTES 10.6 % (2-11); NEUTROPHILS 78.1 % (40-80); PLATELET COUNT 410 10x3/uL (130-400); RBC 4.01 10x6/uL (4.20-6.10); WBC 11.5 10x3/uL (4.8-10.8)
[2019-04-03 06:20] LABS: ALBUMIN 2.4 g/dL (3.4-5.0); ALKALINE PHOSPHATASE 62 U/L (46-116); ALT (SGPT) 74 U/L (10-68); BILIRUBIN - TOTAL 0.61 mg/dL (0.2-1.3); CALC OSMOLALITY 277 mosm/kg (275-300); CALCIUM 8.6 mg/dL (8.5-10.1); CARBON DIOXIDE 31.8 mmol/L (21.0-32.0); CHLORIDE - SERUM 102 mmol/L (98-107); CREATININE - SERUM 0.8 mg/dL (0.6-1.3); GLUCOSE 96 mg/dL (74-106); MAGNESIUM - SERUM 1.8 mg/dL (1.8-2.4); POTASSIUM - SERUM 4.6 mmol/L (3.5-5.1); PROTEIN - SERUM 5.5 g/dL (6.4-8.2); SODIUM 138 mmol/L (136-145); eGFR NON AFRICAN AMERICAN > 90 mL/min (90-120)
[2019-04-03 06:25] LABS: UREA NITROGEN 19 mg/dL (7-18)
[2019-04-03 08:00] VITALS: BP 111/59
--- NOTE | 2019-04-03 10:07 | NUR ---
PT UP TO SIDE OF BED, RECEIVING UPDRAFT THIS TIME. PT A/OX 4, A LITTLE SOB ON 2.3 L NC. INSTURCTED PT TO TAKE IN DEEP BREATHS IN THROUGH HIS NOSE AND OUT HIS MOUTH. LT HAND IV INFUSING NS AT 20CC/HR. ABENA WITH RESP NOTIFIED THIS NURSE THAT, THEY WOULD COME GET PT FOR BRONCH IN ABOUT 20MIN. PROVIDED PT WITH GOWN TO CHANGE INTO. PT DENIES ANY NEEDS AT THIS TIME. CALL LIGHT IN REACH, NAD NOTED,W ILL CONTINUE TO MONITOR.
--- NOTE | 2019-04-03 10:34 | NUR ---
PT FOR BRONCH AT THIS TIME. VIA BED, NAD NOTED.
--- NOTE | 2019-04-03 12:15 | NUR ---
RECEIVED PT BACK TO ROOM 2138. PT A LITTLE DROWSY BUT EASILY AROUSES TO VOICE. VITAL SIGNS STABLE. PLACED PT ON FREQUENT VITAL SINGS. PT NPO FOR 2 MORE HOURS, MADE PT AWARE. PT DENIES ANY NEEDS AT THIS TIME. CALL LIGHT IN REACH, NAD NOTED,W ILL CONTINUE TO MONITOR.
--- NOTE | 2019-04-03 15:54 | NUR ---
NOTIFIED DR. AMAYA OF RT LEG BEING A LITTLE COOL TO TOUCH AND POOR PULSES, ASKED IF CAN NEEDED TO HAVE A DOPPLER, PER DR. AMAYA, IT'S RELATED TO PT'S PVD. NO NEW ORDERED GIVEN.
[2019-04-03 16:19] VITALS: BP 126/70
[2019-04-03 20:15] VITALS: BP 125/71
[2019-04-04 00:02] VITALS: BP 121/64
[2019-04-04 04:00] VITALS: BP 141/84
--- NOTE | 2019-04-04 04:53 | NUR ---
I have reviewed this patient and I concur with the Shift Assessment completed by the Licensed Practical Nurse today this shift.
[2019-04-04 06:38] LABS: ALBUMIN 2.3 g/dL (3.4-5.0); ALKALINE PHOSPHATASE 54 U/L (46-116); ALT (SGPT) 61 U/L (10-68); BILIRUBIN - TOTAL 0.78 mg/dL (0.2-1.3); CALC OSMOLALITY 279 mosm/kg (275-300); CALCIUM 8.2 mg/dL (8.5-10.1); CARBON DIOXIDE 31.9 mmol/L (21.0-32.0); CHLORIDE - SERUM 104 mmol/L (98-107); CREATININE - SERUM 0.8 mg/dL (0.6-1.3); GLUCOSE 100 mg/dL (74-106); MAGNESIUM - SERUM 1.8 mg/dL (1.8-2.4); POTASSIUM - SERUM 4.1 mmol/L (3.5-5.1); PROTEIN - SERUM 6.1 g/dL (6.4-8.2); SODIUM 139 mmol/L (136-145); UREA NITROGEN 18 mg/dL (7-18); eGFR NON AFRICAN AMERICAN > 90 mL/min (90-120)
[2019-04-04 06:50] LABS: BASOPHILS 0.2 % (0-2); EOSINOPHILS 1.4 % (0-7); HEMATOCRIT 36.3 % (42.0-54.0); IMMATURE GRANULOCYTES 0.3 % (0-5); LYMPHOCYTES 4.8 % (15-50); MCH 30.7 pg (26.0-34.0); MCHC 33.1 g/dL (31.0-37.0); MCV 92.8 fL (80.0-100.0); MEAN PLATELET VOLUME 10.3 fL (7.4-10.4); MONOCYTES 9.7 % (2-11); NEUTROPHILS 83.6 % (40-80); PLATELET COUNT 402 10x3/uL (130-400); RBC 3.91 10x6/uL (4.20-6.10); RDW 14.5 % (11.5-14.5); WBC 12.5 10x3/uL (4.8-10.8)
[2019-04-04 08:45] VITALS: BP 120/74
[2019-04-04 11:45] VITALS: BP 107/66
[2019-04-04 16:08] LABS: ACID FAST SMEAR Negative (()); AFB SPECIMEN PROCESSING Concentration (())
[2019-04-04 16:37] VITALS: BP 125/59
[2019-04-04 20:00] VITALS: BP 103/54
--- NOTE | 2019-04-04 22:36 | NUR ---
REC'D WALKING ROUNDS CHGE OF SHIFT SUPINE POSITION IN BED HOB ELEVATED 30 DEGREES 02 3L/NC. MOUTH BREATHING.EYES CLOSED RESP DEEP AND EVEN. WILL CONTINUE TO MONITOR RES. STATUS AND FOLLOW CURRENT PLAN OF CARE
[2019-04-05] VITALS: BP 112/61
[2019-04-05 05:47] LABS: BASOPHILS 0.4 % (0-2); EOSINOPHILS 1.4 % (0-7); IMMATURE GRANULOCYTES 0.7 % (0-5); LYMPHOCYTES 8.1 % (15-50); MCH 30.5 pg (26.0-34.0); MCHC 33.3 g/dL (31.0-37.0); MCV 91.4 fL (80.0-100.0); MEAN PLATELET VOLUME 9.7 fL (7.4-10.4); MONOCYTES 9.6 % (2-11); NEUTROPHILS 79.8 % (40-80); PLATELET COUNT 364 10x3/uL (130-400); RBC 3.61 10x6/uL (4.20-6.10); RDW 14.4 % (11.5-14.5); WBC 10.7 10x3/uL (4.8-10.8)
[2019-04-05 06:15] LABS: ALBUMIN 2.2 g/dL (3.4-5.0); ALKALINE PHOSPHATASE 53 U/L (46-116); ALT (SGPT) 51 U/L (10-68); BILIRUBIN - TOTAL 0.65 mg/dL (0.2-1.3); CALC OSMOLALITY 285 mosm/kg (275-300); CALCIUM 7.9 mg/dL (8.5-10.1); CARBON DIOXIDE 30.2 mmol/L (21.0-32.0); CHLORIDE - SERUM 106 mmol/L (98-107); GLUCOSE 94 mg/dL (74-106); MAGNESIUM - SERUM 1.7 mg/dL (1.8-2.4); POTASSIUM - SERUM 3.8 mmol/L (3.5-5.1); PROTEIN - SERUM 5.8 g/dL (6.4-8.2); SODIUM 141 mmol/L (136-145); eGFR NON AFRICAN AMERICAN 77 mL/min (90-120)
[2019-04-05 06:16] LABS: UREA NITROGEN 26 mg/dL (7-18)
--- NOTE | 2019-04-05 07:42 | NUR ---
ROUNDING DONE WITH PATINET LAYING ON RIGHT SIDE, EYES CLOSED. RESP ARE EVEN. ON 3L PER NC. LEFT HAND PIV WITH NS INFUSING AT 10 CC/HR. ON EP, K+ IS 3.8, MAG 1.7. WILL COVER WITH ORAL SUPPLEMENTS.
[2019-04-05 08:34] VITALS: BP 121/58
[2019-04-05 12:30] VITALS: BP 97/50
--- NOTE | 2019-04-05 14:55 | NUR ---
SITTING ON SIDE OF BED, SECOND MAG WAS GIVEN.
[2019-04-05 16:50] VITALS: BP 115/64
--- NOTE | 2019-04-05 19:00 | NUR ---
EVENING ROUNDS COMPLETE, PT SITTING UP IN BED, NO SIGNS OF DISTRESS. PT DENIES ANY PAIN AT THIS TIME. AAOX4, VSS. CL IN REACH BED IN LOWEST POSITION, CONT WITH POC.
[2019-04-05 20:00] VITALS: BP 108/52
[2019-04-06] VITALS: BP 121/63
[2019-04-06 04:00] VITALS: BP 114/63
[2019-04-06 05:51] LABS: BASOPHILS 0.6 % (0-2); EOSINOPHILS 2.8 % (0-7); HEMATOCRIT 35.9 % (42.0-54.0); HEMOGLOBIN 11.5 g/dL (13.5-17.5); IMMATURE GRANULOCYTES 0.5 % (0-5); LYMPHOCYTES 7.5 % (15-50); MCH 30.9 pg (26.0-34.0); MEAN PLATELET VOLUME 9.8 fL (7.4-10.4); MONOCYTES 11.7 % (2-11); NEUTROPHILS 76.9 % (40-80); RBC 3.72 10x6/uL (4.20-6.10); RDW 14.5 % (11.5-14.5); WBC 10.2 10x3/uL (4.8-10.8)
[2019-04-06 06:23] LABS: ALBUMIN 2.3 g/dL (3.4-5.0); ALKALINE PHOSPHATASE 50 U/L (46-116); ALT (SGPT) 46 U/L (10-68); CALC OSMOLALITY 281 mosm/kg (275-300); CALCIUM 8.2 mg/dL (8.5-10.1); CARBON DIOXIDE 30.3 mmol/L (21.0-32.0); CHLORIDE - SERUM 106 mmol/L (98-107); CREATININE - SERUM 0.9 mg/dL (0.6-1.3); GLUCOSE 102 mg/dL (74-106); MAGNESIUM - SERUM 1.8 mg/dL (1.8-2.4); POTASSIUM - SERUM 4.2 mmol/L (3.5-5.1); PROTEIN - SERUM 6.2 g/dL (6.4-8.2); SODIUM 139 mmol/L (136-145); UREA NITROGEN 23 mg/dL (7-18); eGFR NON AFRICAN AMERICAN 87 mL/min (90-120)
[2019-04-06 06:41] LABS: MCV 96.5 fL (80.0-100.0); PLATELET COUNT 438 10x3/uL (130-400)
[2019-04-06 08:03] VITALS: BP 127/68
[2019-04-06] MEDS ORDERED: PULMICORT0.5 MG/21 UPD (10:03)
--- NOTE | 2019-04-06 11:49 | NUR ---
WAITING ON RIDE FOR DISCHARGE.
[2019-04-06 11:55] VITALS: BP 105/53
--- NOTE | 2019-04-06 14:17 | NUR ---
VERBAL AND WRITTEN DISCHARGE INSTRUCTIONS GIVEN TO PATIENT. SALINE LOCK REMOVED WITH CATH TIP INTACT. PATIENT WAS DISCHARGED HOME ON PORTABLE OXYGEN.
--- NOTE | 2019-04-06 14:46 | MORECARE ---
CASE MANAGEMENT DISCHARGE SUMMARY PATIENT: SONU GALLARDO UNIT: [id number] ADM DATE: 03/26/19 AGE: 79 : 42 SEX: M ROOM/BED: D.2139 AUTHOR: YOSELIN,DOC PHYSICIAN: REFERRING PHYSICIAN: PETER FOWLER MD DATE OF SERVICE: 04/06/19 Discharge Plan Patient Name: SONU GALLARDO Facility: [facility]:[place] : 1940 Planned Disposition: Home Anticipated Discharge Date: Discharge Date: 04/06/2019 Expected LOS: Initial Reviewer: [email or web address] Initial Review Date: 04/02/2019 Generated: 04/06/19 3:45 pm DCP- Discharge Planning Updated by [email or web address]: Zoltan Mcghee on 04/02/19 12:[address] Patient Name: SONU GALLARDO Admission Status: ER Accout number: [id number] Admission Date: 03-26-2019 : 1940 Admission Diagnosis:LOCALIZED SWELLING, MASS AND LUMP, TRUNK Attending: JEANINE FOWLER Current LOS: 7 Anticipated DC Date: Planned Disposition: Home Primary Insurance: MEDICARE A & B Discharge Planning Comments: CM MET WITH PT IN ROOM TO DISCUSS DISCHARGE PLANNING AND NEEDS. PT REPORTS LIVING AT HOME INDEPENDENTLY WITH HIS . PT NEBULIZER, HOME AND PORTABLE OXGYEN AND A SCOOTER; PT HAS NO MEDICAL EQUIPMENT PROVIDER PREFERENCE AND NO OUTSIDE SERVICES ASSISTING IN THE HOME. CM DISCUSSED AVAILABILITY OF HOME HEALTH, REHAB SERVICES AND MEDICAL EQUIPMENT. PT DENIES DISCHARGE NEEDS, REPORTS HIS STEP DAUGHTER WILL PICK HIM UP FOR DISCHARGE HOME. IMPORTANT MESSAGE FROM MEDICARE PROVIDED AND EXPLAINED PT PLANS TO DISCHARGE HOME WITH SPOUSE, STEP DAUGHTER TO PODIATRIC PHYSICIAN AT DISCHARGE. PT HAS NO ANTICIPATED DISCHARGE NEEDS AT THIS TIME. CM TO FOLLOW AND ASSIST NEEDED. Polymerization Oven Operator: Zoltan Mcghee DCPIA - Discharge Planning Initial Assessment Updated by [email or web address]: Zoltan Mcghee on 04/02/19 1:26 pm * Is the patient Alert and Oriented? Yes * How many steps to enter\exit or inside your home? NONE * PCP DR. ESTRELLA * Pharmacy [facility] * Preadmission Environment Home with Family * ADLs Independent * Equipment Nebulizer Oxygen Power Chair or Electric Scooter * Other Equipment HOME AND PORTABLE OXYGEN [employer]KNOWN [employer] * List name and contact numbers for known caregivers / representatives who currently or will assist patient after discharge: JEWELS GALLARDO, SPOUSE, ULYSSES BAKER, GDTR, * Verbal permission to speak to the caregivers and representatives has been obtained from the patient. N/A * Community resources currently utilized None * Please name any agencies selected above. NONE * Additional services required to return to the preadmission environment? No * Can the patient safely return to the preadmission environment? Yes * Has this patient been hospitalized within the prior 30 days at any hospital? No Coverage Notice Reviewer: [email or web address] Nisa Mcghee Notice Issued Date-Time: 04/02/2019 13:15 Notice Type: IM Discharge Notice Notice Delivered To: Patient Relationship to Patient: Concrete Mixer Operator Name: Delivery Method: HAND - Hand Delivered Saira Days: Prior Verbal Notification: Recipient Understood Notice: Yes Recipient Signature: Yes Med Rec Note Co-signed by Attending: Coverage Notice Comment: Reviewer: [id number] Nisa Anthony Notice Issued Date-Time: 04/06/2019 11:38 Notice Type: IM Discharge Notice Notice Delivered To: Patient Relationship to Patient: Concrete Mixer Operator Name: Delivery Method: HAND - Hand Delivered Saira Days: Prior Verbal Notification: Recipient Understood Notice: Yes Recipient Signature: Yes Med Rec Note Co-signed by Attending: Coverage Notice Comment: Last DP export: 04/02/19 12:34 p Patient Name: SONU GALLARDO Page 08623 at 1446 All edits/amendments must be made on the electronic document DICTATION DATE: 04/06/19 144 LINING SCRUBBER: MANJIT 04/06/19 1445 RPT#: [id number] DC DATE:04/06/19 STATUS: DIS IN [facility] [address] [place] [address] END OF REPORT
== END 2019-04-06 14:23 | disposition home or self-care (01) | DRG 193 ==
LOC: D.ER 18:07 → D.M2 23:39
PROVIDERS: Family Medicine; Internal Medicine Pulmonary Disease; ADMIT Emergency Medicine; ATTEND Emergency Medicine
PROC: 0B9J8ZX Drainage of Left Lower Lung Lobe, Via Natural or Artificial Opening Endoscopic, Diagnostic (ICD-10-PCS; principal; 2019-04-03 10:43)
DX: J18.1 Lobar pneumonia, unspecified organism (principal); J96.21 Acute and chronic respiratory failure with hypoxia; J98.11 Atelectasis; Z99.81 Dependence on supplemental oxygen; K40.90 Unilateral inguinal hernia, without obstruction or gangrene, not specified as recurrent; K63.89 Other specified diseases of intestine; I07.1 Rheumatic tricuspid insufficiency; I25.10 Atherosclerotic heart disease of native coronary artery without angina pectoris; I48.91 Unspecified atrial fibrillation; K21.9 Gastro-esophageal reflux disease without esophagitis; D64.9 Anemia, unspecified; I10 Essential (primary) hypertension; E78.5 Hyperlipidemia, unspecified; M19.90 Unspecified osteoarthritis, unspecified site; J43.9 Emphysema, unspecified

== ENCOUNTER → 2019-07-10 10:31 | Outpatient (CLI) | payer MEDICARE ==
[2019-03-27 21:24] VITALS: BMI 21.7
[~2019-07-10 10:31] MED LIST changes: +FAMOTIDINE10 MG PO; +FUROSEMIDE20 MG PO; +MOVANTIK25 MG; +PACERONE100 MG PO
== END | disposition home or self-care (01) ==
LOC: D.RT 07-09 13:00
PROVIDERS: ATTEND Internal Medicine Pulmonary Disease
DX: J44.9 Chronic obstructive pulmonary disease, unspecified (principal)

== ENCOUNTER → 2019-10-24 06:33 | Day surgery (SDC) | payer MEDICARE ==
[2019-03-27 21:24] VITALS: Ht 185.4 cm; Wt 65.8 kg
[~2019-10-24] VITALS: Ht 185.4 cm; Wt 65.8 kg
[2019-10-24 07:07] LABS: HEMATOCRIT 40.9 % (42.0-54.0); HEMOGLOBIN 12.8 g/dL (13.5-17.5); MCH 31.1 pg (26.0-34.0); MCHC 31.3 g/dL (31.0-37.0); MCV 99.3 fL (80.0-100.0); MEAN PLATELET VOLUME 10.3 fL (7.4-10.4); RBC 4.12 10x6/uL (4.20-6.10); RDW 13.3 % (11.5-14.5); WBC 9.2 10x3/uL (4.8-10.8)
== END | disposition home or self-care (01) ==
LOC: D.OPS 09-12 09:30 → D.PAN 09-12 09:30 → D.OPS 06:33 → D.PAN 09:30
PROVIDERS: Anesthesiology; ATTEND Surgery
DX: K40.90 Unilateral inguinal hernia, without obstruction or gangrene, not specified as recurrent (principal); J44.9 Chronic obstructive pulmonary disease, unspecified; Z53.9 Procedure and treatment not carried out, unspecified reason

== ENCOUNTER 2019-11-30 06:25 | Day surgery (SDC) | payer MEDICARE ==
[~2019-11-30] VITALS: Ht 185.4 cm; Wt 65.8 kg
[2019-11-30 06:46] LABS: HEMATOCRIT 41.9 % (42.0-54.0); HEMOGLOBIN 13.5 g/dL (13.5-17.5); MCH 31.5 pg (26.0-34.0); MCHC 32.2 g/dL (31.0-37.0); MCV 97.7 fL (80.0-100.0); MEAN PLATELET VOLUME 9.6 fL (7.4-10.4); RBC 4.29 10x6/uL (4.20-6.10); RDW 13.7 % (11.5-14.5); WBC 8.5 10x3/uL (4.8-10.8)
[2019-11-30 08:01] VITALS: BP 145/74; Ht 185.4 cm; Wt 65.8 kg
--- NOTE | 2019-11-30 17:44 | NUR ---
1430-ASSISTED PT TP RESTROOM.REQUIRED WALKER AND STANDBY ASSIST. UNABLE TO VOID. VSS. NO DISTRESS.NO N/V
--- NOTE | 2019-11-30 18:10 | NUR ---
1530-CONTINUE TO NOT BE ABLE TO VOID.VSS.NO DISTRESS.DRESSING CDI. IV PATENT AT [facility]. HYDRATING WITH ICE WATER.NO N/V
--- NOTE | 2019-11-30 18:11 | NUR ---
1740-PT AMBULATED TO RESTROOM USING WALKER.ABLE TO VOID AT THIS TIME WITHOUT COMPLICATIONS.VSS.DRESSING CDI.NO N/V NO DISTRESS
--- NOTE | 2019-11-30 18:11 | NUR ---
8354-REVIEWED POST OPERATIVE INSTRUCTIONS.WILL CALL TUESDAY TO CONFIRM FOLLOW UP APPOINTMENT. VERY PLEASANT.VSS.NO N.V.NO DISTRESS. REMOVED IV WITH CATH INTACT,DISPOSED INTO SHARPS,COVERED WITH GUAZE,SECURED WITH MEDIPORE TAPE. ESCORTED OUT VIA W/C WITH TAXI DRIVING HOME
--- NOTE | 2019-12-01 07:52 | OP ---
PATIENT NAME: SONU GALLARDO MEDICAL RECORD: [id number] :44 LOCATION:D.[facility]ERLY [facility] ADMISSION DATE: SURGEON: MEHRDAD NOBLE MD DATE OF OPERATION: 11/30/2019 PREOPERATIVE DIAGNOSIS: Symptomatic large left inguinal hernia. POSTOPERATIVE DIAGNOSIS: 1. Symptomatic large indirect sliding left inguinal hernia. 2. Left cord lipoma. PROCEDURES: 1. Open repair of a large symptomatic indirect left inguinal hernia with bilayer polypropylene mesh. 2. Excision of left cord lipoma. SURGEON: Mehrdad Noble MD PORTABLE SAWMILL OPERATOR: None. BLOOD LOSS: Minimal. ANESTHESIA: General. COMPLICATIONS: None. The risks, possible complications, and alternatives to the procedure were explained to the patient. He elects to proceed. The discussion specifically included, but was not limited to, bleeding requiring emergency reoperation, infection, intestinal injury. OPERATIVE COURSE: The patient was conveyed to the operating room electively on 11/30/2019. General anesthesia was induced by the anesthesia staff. The abdomen and genitals were sterilely prepped and draped. A transverse incision was accomplished in the left groin. Sharp dissection was carried down through skin and subcutaneous tissue as well as Jose Elias fascia. I then sharply cleaned the anterior fascia from overlying connective tissue. I incised the external oblique aponeurosis along the direction of its fibers. I bluntly dissected down through the internal oblique and transverse abdominis muscle layers. A preperitoneal pocket was fashioned bluntly. I entered the hernia sac. This aided in my reduction of the hernia sac. There was a cord lipoma. I clamped across the vascular pedicle to the cord lipoma and transected the cord lipoma distal to this and then ligated the pedicle with a suture ligature of 3-0 Vicryl. There was a slow sliding component. A large amount of colon was present down in the hernia sac. I was able to reduce the sac in its entirety. I reperitonealized with interrupted 3-0 Vicryls. Two layers of polypropylene mesh were then cut in to ovals and then sutured one on top of the other with a running #1 Surgidac. The mesh was placed in the preperitoneal space. I allowed the transverse abdominis and internal oblique muscles to come together over the mesh. These were sutured together with multiple interrupted horizontal mattress 0 Surgidacs incorporating a portion of the underlying mesh. The external oblique aponeurosis was closed with running #1 Vicryls. Jose Elias fascia was approximated with interrupted 3-0 Vicryls. The subdermis was approximated with OPERATIVE REPORT [id number] SONU GALLARDO interrupted 3-0 Vicryls. The skin was approximated with a running intracuticular 4-0 Vicryl. Benzoin and Steri-Strips were applied. The patient was then extubated and conveyed to post-anesthesia care unit where he was in stable condition. He will be dismissed home on [place] as well as [place]. I will see him in the office in 2-3 weeks. TRANSINT:[id number] Voice Confirmation ID: [id number] DOCUMENT ID: [id number] MEHRDAD NOBLE MD at 0752 CC: GUNNER ESTRELLA [id number] DICTATION DATE: 11/30/19 152 DIESEL PILE DRIVER OPERATOR: 11/30/192057 [facility] 11/30/19 [facility] [address] [place] [address]
== END 2019-11-30 17:55 | disposition home or self-care (01) ==
LOC: D.OPS 06:25 → D.PAN 08:00 → D.OPS 09:30 → D.PAN 09:55 → D.OPS 09:55
PROVIDERS: Anesthesiology; ATTEND Surgery
DX: K40.90 Unilateral inguinal hernia, without obstruction or gangrene, not specified as recurrent (principal); D17.6 Benign lipomatous neoplasm of spermatic cord; J44.9 Chronic obstructive pulmonary disease, unspecified

== ENCOUNTER → 2019-12-27 16:24 | Outpatient (CLI) | payer MEDICARE ==
[2019-11-30 08:01] VITALS: BMI 19.1
== END | disposition home or self-care (01) ==
LOC: D.RAD 16:24
PROVIDERS: ATTEND Surgery
DX: R10.9 Unspecified abdominal pain (principal)

== ENCOUNTER 2020-01-29 13:24 | Inpatient (IN) | payer MEDICARE ==
[~2020-01-29] VITALS: Ht 185.4 cm; Wt 58.5 kg
[2020-01-29 14:15] VITALS: BP 106/57
[2020-01-29 14:16] LABS: BASOPHILS 0.4 % (0-2); EOSINOPHILS 3.1 % (0-7); HEMATOCRIT 35.2 % (42.0-54.0); HEMOGLOBIN 11.3 g/dL (13.5-17.5); IMMATURE GRANULOCYTES 1.2 % (0-5); LYMPHOCYTES 7.9 % (15-50); MCH 30.3 pg (26.0-34.0); MCHC 32.1 g/dL (31.0-37.0); MCV 94.4 fL (80.0-100.0); MEAN PLATELET VOLUME 9.2 fL (7.4-10.4); MONOCYTES 9.8 % (2-11); NEUTROPHILS 77.6 % (40-80); RBC 3.73 10x6/uL (4.20-6.10); RDW 14.5 % (11.5-14.5); WBC 13.1 10x3/uL (4.8-10.8)
[2020-01-29 14:28] LABS: CALC OSMOLALITY 282 mosm/kg (275-300); CALCIUM 7.9 mg/dL (8.5-10.1); CARBON DIOXIDE 31.9 mmol/L (21.0-32.0); CHLORIDE - SERUM 106 mmol/L (98-107); CREATININE - SERUM 0.9 mg/dL (0.6-1.3); GLUCOSE 114 mg/dL (74-106); SODIUM 140 mmol/L (136-145); UREA NITROGEN 20 mg/dL (7-18); eGFR NON AFRICAN AMERICAN 87 mL/min (90-120)
[2020-01-29 14:31] LABS: PLATELET COUNT 596 10x3/uL (130-400)
[2020-01-29 14:40] LABS: ALBUMIN 2.1 g/dL (3.4-5.0); ALKALINE PHOSPHATASE 58 U/L (30-120); ALT (SGPT) 28 U/L (10-68); BILIRUBIN - TOTAL 0.52 mg/dL (0.2-1.3); CKMB 1.9 U/L (0.0-3.6); CREATINE KINASE 38 UL (21-232); MAGNESIUM - SERUM 1.6 mg/dL (1.8-2.4); PRO BNP 872 pg/mL (0-450); PROTEIN - SERUM 5.7 g/dL (6.4-8.2); TROPONIN-I < 0.017 ng/mL (0.000-0.060)
[2020-01-29 14:43] LABS: APTT 27.9 SECONDS (22.8-39.4); INR 1.12 (0.85-1.17); PROTIME 14.4 SECONDS (11.6-15.0)
--- NOTE | 2020-01-29 14:43 | NUR ---
SWAB FOR COVID-19 OBTAINED AND SENT TO THE LAB.
[2020-01-29 14:44] LABS: D-DIMER-QUANTITATIVE 1.85 ug/mLFEU (0.20-0.54)
[2020-01-29 14:45] VITALS: BP 100/54
[2020-01-29 15:00] VITALS: BP 105/51
[2020-01-29 16:03] VITALS: BP 113/50
[2020-01-29 17:00] VITALS: BP 97/57
[2020-01-29] MEDS ORDERED: PEPCID AC20 MG PO (18:16)
[2020-01-29] MEDS ORDERED: OMEPRAZOLE20 M1 PO (18:17)
[2020-01-29] MEDS ORDERED: CARDIZEM120 MG PO (18:18)
[2020-01-29 18:21] VITALS: BP 122/58; BMI 16.9
--- NOTE | 2020-01-29 18:30 | NUR ---
RECIEVED PT FROM ER. PT IS AAO AND UP AD LEANDRO. RR EVEN AND LABORED ON EXERTION ON 4L 02. VSS AND WNL. L.HAND PIV SALINE LOCKED. PT ORIENTED TO ROOM. NO S/S OF DISTRESS NOTED. COVID PUI. TELEMETRY APPLIED. QUICKSTART, HISTORY, MED REQ, AND ASSESSMENT COMPLETE. WILL CTM.
[2020-01-30] VITALS: BP 123/61
[2020-01-30 04:00] VITALS: BP 117/64
--- NOTE | 2020-01-30 04:09 | NUR ---
I have reviewed this patient and I concur with the Shift Assessment completed by the Licensed Practical Nurse today this shift.
[2020-01-30 06:53] LABS: BASOPHILS 0 % (0-2); EOSINOPHILS 0 % (0-7); HEMATOCRIT 37.7 % (42.0-54.0); LYMPHOCYTES 5.2 % (15-50); MCH 29.9 pg (26.0-34.0); MCHC 31.8 g/dL (31.0-37.0); MCV 93.8 fL (80.0-100.0); MEAN PLATELET VOLUME 9.4 fL (7.4-10.4); MONOCYTES 1.9 % (2-11); NEUTROPHILS 91.9 % (40-80); PLATELET COUNT 694 10x3/uL (130-400); RBC 4.02 10x6/uL (4.20-6.10); RDW 14.5 % (11.5-14.5)
[2020-01-30 07:02] LABS: WBC 7.3 10x3/uL (4.8-10.8)
--- NOTE | 2020-01-30 07:25 | NUR ---
PT LAYING SUPINE, RR EVEN AND UNLABORED ON RA. DENIES NEEDS OR PAIN AT THIS TIME. CALL LIGHT WITHIN REACH. BED IN LOWEST POSITION. WILL CONTINUE TO MONITOR.
[2020-01-30 08:31] LABS: ALBUMIN 2.2 g/dL (3.4-5.0); ALKALINE PHOSPHATASE 55 U/L (30-120); ALT (SGPT) 35 U/L (10-68); BILIRUBIN - TOTAL 0.36 mg/dL (0.2-1.3); CALC OSMOLALITY 283 mosm/kg (275-300); CALCIUM 8.4 mg/dL (8.5-10.1); CARBON DIOXIDE 30.7 mmol/L (21.0-32.0); CHLORIDE - SERUM 104 mmol/L (98-107); CKMB 2.4 U/L (0.0-3.6); CREATINE KINASE 50 UL (21-232); CREATININE - SERUM 0.8 mg/dL (0.6-1.3); GLUCOSE 136 mg/dL (74-106); POTASSIUM - SERUM 4.6 mmol/L (3.5-5.1); PROTEIN - SERUM 5.7 g/dL (6.4-8.2); SODIUM 141 mmol/L (136-145); TROPONIN-I < 0.017 ng/mL (0.000-0.060); UREA NITROGEN 16 mg/dL (7-18); eGFR NON AFRICAN AMERICAN > 90 mL/min (90-120)
[2020-01-30 10:14] VITALS: BP 98/66
[2020-01-30 14:03] VITALS: Ht 185.4 cm; Wt 58.5 kg
--- NOTE | 2020-01-30 15:49 | NUR ---
I have reviewed this patient and I concur with the Shift Assessment completed by the Licensed Practical Nurse today this shift.
--- NOTE | 2020-01-30 15:53 | NUR ---
OT NOTE: PT PRESENTED SITTING AT EOB. PT COMPLETED SIT TO STAND WITH CGA. PT COMPLETED SIDE STEPS WITH MIN A. PT IS SOB. PT COMPLETED FACE HYGIENE WITH SETUP. PT REQUIRED SEVERAL REST BREAKS. 140-114 THANK YOU,CHRISTY OLIVEROS
[2020-01-31] VITALS: BP 116/60
[2020-01-31 04:00] VITALS: BP 110/52
[2020-01-31 06:23] LABS: ANION GAP 6.8 mmol/L (8-16); CALCIUM 8.7 mg/dL (8.5-10.1); CARBON DIOXIDE 31.4 mmol/L (21.0-32.0); HEMATOCRIT 35.1 % (42.0-54.0); HEMOGLOBIN 11.4 g/dL (13.5-17.5); MCH 30.2 pg (26.0-34.0); MCHC 32.5 g/dL (31.0-37.0); MCV 93.1 fL (80.0-100.0); MEAN PLATELET VOLUME 9.5 fL (7.4-10.4); PLATELET COUNT 733 10x3/uL (130-400); POTASSIUM - SERUM 4.2 mmol/L (3.5-5.1); RBC 3.77 10x6/uL (4.20-6.10); RDW 14.5 % (11.5-14.5); WBC 22.1 10x3/uL (4.8-10.8)
[2020-01-31 06:24] LABS: CREATININE - SERUM 1.1 mg/dL (0.6-1.3)
--- NOTE | 2020-01-31 07:19 | NUR ---
PT SITTING UP ON SIDE OF BED, PT DENIES PAIN OR NEEDS, O2 IN USE PER NC, TELE SECURE AND BEING MONITORED, IV SALINE LOCKED, SITE CLEAR, SR UP X2, CALL LIGHT IN REACH, BED LOW AND LOCKED, WILL CONTINUE TO MONITOR
[2020-01-31 09:57] VITALS: BP 131/88
[2020-01-31 10:37] LABS: ANISOCYTOSIS OCC; CRENATED CELLS OCC; LYMPHOCYTES 5 % (15-50); MONOCYTES 5 % (2-11); NEUTROPHILS 89 % (40-80); PLATELET ESTIMATE INCREASED; ROULEAUX OCC
[2020-01-31 15:06] VITALS: BP 125/90
--- NOTE | 2020-01-31 16:44 | NUR ---
OT NOTE: PT COMPLETED SUPINE TO SIT WITH SBA. PT COMPLETED EOB SITTING BALANCE WITH SBA. PT COMPLETED SIT TO STAND WITH CGA. PT COMPLETED SIDE STEPPING WITH CGA. PT IS SOB AND DECREASED ACTIVITY TOLERANCE. [phone] THANK YOU,CHRISTY OLIVEROS
--- NOTE | 2020-01-31 19:15 | NUR ---
ASSISTED PT TO THE RESTROOM. HE BECAME VERY SHORT OF BREATH ON HIS WAY BACK TO BED. O2 SAT 93% ON 3.5L NC. RT IN ROOM TO GIVE BREATHING TREATMENT. AFTER SITTING ON THE SIDE OF THE BED FOR A COULPLE MINUTES HE WAS NOT SHORT OF BREATH AND WAS ABLE TO TAKE HIS BREATHING TREATMENT. PT ASKING IF HE CAN HAVE A PAIN PILL LATER AND STATES HE TAKES HYDROCODONE. HE ONLY HAS TYLENOL ORDERED. HE STATES HE TAKES HYDRO 7.5 FOR POST OP HERNIA REPAIR PAIN. CALLED [facility] AND RECEIVED AN ORDER FOR HYDROCODONE. SEE MAR. PT STATES HE WANTS TO WAIT FOR THE PAIN MEDICATION. TOLD HIM TO LET ME KNOW WHEN HE NEEDED IT. VERBALIZED UNDERSTANDING. HE DENIES FURTHER NEEDS. BED IS LOW AND CALL LIGHT IN REACH.
[2020-01-31 20:00] VITALS: BP 104/45
[2020-01-31 20:15] VITALS: BP 110/62
[2020-01-31] MEDS ORDERED: HYDROCODON-ACE1 EA10 (20:20)
[2020-01-31] MEDS ORDERED: HYDROCODON-ACE1 EA10 PO (21:25)
[2020-02-01] VITALS: BP 97/46
[2020-02-01 04:00] VITALS: BP 100/61
[2020-02-01 07:56] LABS: HEMATOCRIT 32.9 % (42.0-54.0); HEMOGLOBIN 10.5 g/dL (13.5-17.5); MCH 29.8 pg (26.0-34.0); MCHC 31.9 g/dL (31.0-37.0); MCV 93.5 fL (80.0-100.0); MEAN PLATELET VOLUME 9.6 fL (7.4-10.4); PLATELET COUNT 655 10x3/uL (130-400); RBC 3.52 10x6/uL (4.20-6.10); RDW 14.9 % (11.5-14.5); WBC 21.3 10x3/uL (4.8-10.8)
[2020-02-01 08:21] VITALS: BP 130/67
[2020-02-01 08:27] LABS: CALC OSMOLALITY 284 mosm/kg (275-300); CALCIUM 8.3 mg/dL (8.5-10.1); CARBON DIOXIDE 32.9 mmol/L (21.0-32.0); CHLORIDE - SERUM 103 mmol/L (98-107); GLUCOSE 116 mg/dL (74-106); SODIUM 138 mmol/L (136-145); UREA NITROGEN 34 mg/dL (7-18); eGFR NON AFRICAN AMERICAN 77 mL/min (90-120)
[2020-02-01 08:28] LABS: POTASSIUM - SERUM 4.9 mmol/L (3.5-5.1)
[2020-02-01 08:42] LABS: LYMPHOCYTES 3 % (15-50); NEUTROPHILS 95 % (40-80); PLATELET ESTIMATE INCREASED
[2020-02-01 08:44] LABS: TEAR DROP CELLS OCC
[2020-02-01 11:41] VITALS: BP 107/52
--- NOTE | 2020-02-01 13:44 | NUR ---
Nutrition Follow-up: Pt sleeping soundly at time of visit this AM and did not wake upon entering room. Noted 100% of breakfast, including 100% of Ensure, consumed this AM per record. Diet: Cardiac, Dental Soft, Ensure TID PO intake: 69% avg x 4 meals Wt: 129# (01/29) Labs noted: Glu 116, Ca 8.3 Meds noted: Solumedrol, Protonix -Encourage PO intake and honor food preferences within diet restrictions. -Monitor wt. -RD following.
--- NOTE | 2020-02-01 15:22 | NUR ---
OT NOTE: PT COMPLETED EOB SITTING WITH SPV.PT COMPLETED SIT TO STAND WITH CGA. PT COMPLETED ADL MOB WITH CGA. PT COMPLETED NELLIE/DOFF SOCKS WITH SPV. (PM) PT COMPLETED FACE AND HAND HYGIENE AT SINK LEVEL WITH CGA. PT COMPLETED UE AROM TOLERATED. [id number];[id number] THANK YOU,CHRISTY OLIVEROS
[2020-02-01 16:33] VITALS: BP 106/58
--- NOTE | 2020-02-01 18:55 | NUR ---
REPORT RECEIVED, PT CARE ASSUMED. WROTE NAME ON BOARD AND INTRODUCED SELF. PT SITTING UP ON SIDE OF BED, AAOX4. DENIES ANY NEEDS AT THIS TIME. BED IN LOWEST, SRX1, CALL LIGHT WITHIN REACH. WILL CTM.
[2020-02-01 20:54] VITALS: BP 102/46
[2020-02-02 04:46] VITALS: BP 110/51
[2020-02-02 07:09] LABS: BASOPHILS 0.1 % (0-2); EOSINOPHILS 0 % (0-7); HEMATOCRIT 33.2 % (42.0-54.0); HEMOGLOBIN 10.7 g/dL (13.5-17.5); IMMATURE GRANULOCYTES 0.8 % (0-5); LYMPHOCYTES 2.9 % (15-50); MCH 30.5 pg (26.0-34.0); MCHC 32.2 g/dL (31.0-37.0); MCV 94.6 fL (80.0-100.0); MEAN PLATELET VOLUME 9.5 fL (7.4-10.4); NEUTROPHILS 92.2 % (40-80); PLATELET COUNT 591 10x3/uL (130-400); RBC 3.51 10x6/uL (4.20-6.10); RDW 14.9 % (11.5-14.5); WBC 19.6 10x3/uL (4.8-10.8)
[2020-02-02 07:20] LABS: CALC OSMOLALITY 281 mosm/kg (275-300); CALCIUM 8.3 mg/dL (8.5-10.1); CARBON DIOXIDE 35.1 mmol/L (21.0-32.0); CHLORIDE - SERUM 103 mmol/L (98-107); GLUCOSE 120 mg/dL (74-106); POTASSIUM - SERUM 5.2 mmol/L (3.5-5.1); SODIUM 136 mmol/L (136-145); UREA NITROGEN 37 mg/dL (7-18); eGFR NON AFRICAN AMERICAN 77 mL/min (90-120)
--- NOTE | 2020-02-02 08:06 | NUR ---
PT SITTING ON SIDE OF BED, TALKING ON THE PHONE. CALL LIGHT WITHIN REACH. BED IN LOWEST POSITION. DENIES NEEDS OR PAIN AT THIS TIME. WILL CONTINUE TO MONITOR.
[2020-02-02 09:41] VITALS: BP 156/91
[2020-02-02 12:15] VITALS: BP 108/64
--- NOTE | 2020-02-02 16:52 | NUR ---
PATIENT CHART/ ASSESSMENT REVIEWED. THIS MILLER SUPERVISOR CONCURS WITH ASSESSMENT DOCUMENTED ON THIS SHIFT BY CLARICE PARKS.
[2020-02-02 17:30] VITALS: BP 99/37
--- NOTE | 2020-02-02 18:55 | NUR ---
REPORT RECEIVED, PT CARE ASSUMED. WROTE NAME ON BOARD. PT SITTING IN CHAIR AT BEDSIDE WATCHING TV, AAOX4. REQUESTING WATER, PROVIDED. DENIES ANY OTHER NEEDS AT THIS TIME. BED IN LOWEST, CALL LIGHT AND URINAL WITHIN REACH. WILL CTM.
[2020-02-02 20:00] VITALS: BP 88/42
[2020-02-03 04:00] VITALS: BP 95/53
[2020-02-03 06:58] LABS: BASOPHILS 0.1 % (0-2); EOSINOPHILS 0 % (0-7); HEMATOCRIT 33.6 % (42.0-54.0); HEMOGLOBIN 10.6 g/dL (13.5-17.5); LYMPHOCYTES 3.5 % (15-50); MCH 29.9 pg (26.0-34.0); MCHC 31.5 g/dL (31.0-37.0); MCV 94.6 fL (80.0-100.0); MEAN PLATELET VOLUME 9.6 fL (7.4-10.4); MONOCYTES 3.3 % (2-11); NEUTROPHILS 92.1 % (40-80); PLATELET COUNT 540 10x3/uL (130-400); RBC 3.55 10x6/uL (4.20-6.10)
[2020-02-03 07:22] LABS: CALC OSMOLALITY 290 mosm/kg (275-300); CALCIUM 8.1 mg/dL (8.5-10.1); CARBON DIOXIDE 37.6 mmol/L (21.0-32.0); CHLORIDE - SERUM 104 mmol/L (98-107); GLUCOSE 123 mg/dL (74-106); POTASSIUM - SERUM 4.9 mmol/L (3.5-5.1); SODIUM 140 mmol/L (136-145); UREA NITROGEN 42 mg/dL (7-18); eGFR NON AFRICAN AMERICAN 77 mL/min (90-120)
[2020-02-03 09:24] VITALS: BP 140/96
[2020-02-03 12:00] VITALS: BP 127/77
[2020-02-03 16:00] VITALS: BP 112/66
--- NOTE | 2020-02-03 18:50 | NUR ---
REPORT RECEIVED, PT CARE ASSUMED. WROTE NAME ON BOARD. PT SITTING UP IN CHAIR AT BEDSIDE, WATCHING TV, AAOX4. REQUESTED CUP OF ICE, PROVIDED. DENIES ANY OTHER NEEDS AT THIS TIME. BED IN LOWEST, CALL LIGHT AND URINAL WITHIN REACH. WILL CTM.
[2020-02-03 21:09] VITALS: BP 69/48
[2020-02-04 00:37] VITALS: BP 114/41
[2020-02-04 04:15] VITALS: BP 120/50
[2020-02-04 05:16] LABS: ANION GAP 4.8 mmol/L (8-16); CALCIUM 7.8 mg/dL (8.5-10.1); CARBON DIOXIDE 37.4 mmol/L (21.0-32.0); CREATININE - SERUM 1.1 mg/dL (0.6-1.3); POTASSIUM - SERUM 5.2 mmol/L (3.5-5.1)
[2020-02-04 05:17] LABS: APTT 23.5 SECONDS (22.8-39.4); INR 1.11 (0.85-1.17); PROTIME 14.3 SECONDS (11.6-15.0)
[2020-02-04 05:33] LABS: BASOPHILS 0.1 % (0-2); EOSINOPHILS 0 % (0-7); HEMATOCRIT 31.3 % (42.0-54.0); IMMATURE GRANULOCYTES 1.5 % (0-5); LYMPHOCYTES 2.1 % (15-50); MCH 30.3 pg (26.0-34.0); MCHC 31.9 g/dL (31.0-37.0); MCV 94.8 fL (80.0-100.0); MEAN PLATELET VOLUME 9.7 fL (7.4-10.4); MONOCYTES 2.6 % (2-11); NEUTROPHILS 93.7 % (40-80); PLATELET COUNT 513 10x3/uL (130-400); RDW 15.1 % (11.5-14.5); WBC 17.9 10x3/uL (4.8-10.8)
--- NOTE | 2020-02-04 07:20 | NUR ---
RECIEVE REPORT. RESTING IN BED WITH EYES CLOSED. NO SIGNS OF DISTRESS. RESPIRATIONS NONLABORED. CONTINUE PLAN OF CARE AND SAFETY PRECAUTIONS.
[2020-02-04 10:33] VITALS: BP 92/54
--- NOTE | 2020-02-04 10:36 | NUR ---
Rehab Note- Acute Inpatient Rehab prescreen order received. The patient is a good inpatient acute rehab candidate if in agreeance when medically stable and ready for discharge from the acute hospital. Will follow at this time. THank you for this referral! Nichole Curiel RN Clinical Liaison, [facility] Rehab
--- NOTE | 2020-02-04 12:32 | MORECARE ---
CASE MANAGEMENT DISCHARGE SUMMARY PATIENT: SONU GALLARDO UNIT: [id number] ADM DATE: 01/29/20 AGE: 79 : 42 SEX: M ROOM/BED: D.2136 AUTHOR: RED WYATT PHYSICIAN: REFERRING PHYSICIAN: PETER FOWLER MD DATE OF SERVICE: 02/04/20 Discharge Plan Patient Name: SONU GALLARDO Facility: [facility]:[place] : 1940 Planned Disposition: Anticipated Discharge Date: Discharge Date: Expected LOS: Initial Reviewer: [email or web address] Initial Review Date: 01/29/2020 Generated: 02/04/20 1:32 pm Patient Name: SONU GALLARDO Page [phone] at 1232 All edits/amendments must be made on the electronic document DICTATION DATE: 02/04/20 1232 EMS HELICOPTER PILOT: MANJIT 02/04/20 1232 RPT#: [id number] DC DATE: STATUS: ADM IN [facility] [address] [place] [address] END OF REPORT
--- NOTE | 2020-02-04 12:47 | MORECARE ---
CASE MANAGEMENT DISCHARGE SUMMARY PATIENT: SONU GALLARDO UNIT: [id number] ADM DATE: 01/29/20 AGE: 79 : 42 SEX: M ROOM/BED: D.2136 AUTHOR: RED WYATT PHYSICIAN: REFERRING PHYSICIAN: PETER FOWLER MD DATE OF SERVICE: 02/04/20 Discharge Plan Patient Name: SONU GALLARDO [facility] [facility] 1940 Planned Disposition: Anticipated Discharge Date: Discharge Date: Expected LOS: Initial Reviewer: [email or web address] Initial Review Date: 01/29/2020 Generated: 02/04/20 1:47 pm DCPIA - Discharge Planning Initial Assessment Updated by [id number]: Magalys Darnell on 02/04/20 12:46 pm * Is the patient Alert and Oriented? Yes * How many steps to enter\exit or inside your home? 0/14 * PCP ESTRELLA * Pharmacy [facility] * Preadmission Environment Home with Family * ADLs Partial Dependent * Partial ADLs (Assistance needed) Bathing Dressing Medication Management * Equipment Nebulizer Rolling Walker * List name and contact numbers for known caregivers / representatives who currently or will assist patient after discharge: ISAIAS [phone] * Verbal permission to speak to the caregivers and representatives has been obtained from the patient. Yes * Community resources currently utilized Other * Please name any agencies selected above. [facility] * Additional services required to return to the preadmission environment? Yes * Can the patient safely return to the preadmission environment? Yes * Has this patient been hospitalized within the prior 30 days at any hospital? No Last DP export: 02/04/20 11:32 a Patient Name: SONU GALLARDO Page 09952 at 1247 All edits/amendments must be made on the electronic document DICTATION DATE: 02/04/20 124 STILL CLEANER: MANJIT 02/04/20 1247 RPT#: [id number] DC DATE: STATUS: ADM IN [facility] [address] [place] [address] END OF REPORT
--- NOTE | 2020-02-04 13:14 | MORECARE ---
CASE MANAGEMENT DISCHARGE SUMMARY PATIENT: SONU GALLARDO UNIT: [id number] ADM DATE: 01/29/20 AGE: 79 : 42 SEX: M ROOM/BED: D.2136 AUTHOR: YOSELIN,DOC PHYSICIAN: REFERRING PHYSICIAN: PETER FOWLER MD DATE OF SERVICE: 02/04/20 Discharge Plan Patient Name: SONU GALLARDO Facility: [facility]:[place] : 1940 Planned Disposition: Anticipated Discharge Date: Discharge Date: Expected LOS: Initial Reviewer: [email or web address] Initial Review Date: 01/29/2020 Generated: 02/04/20 2:13 pm Comments DCP- Discharge Planning Updated by [email or web address]: Magalys Darnell on 02/04/20 12:[address] Patient Name: SONU GALLARDO Admission Status: ER Accout number: [id number] Admission Date: 01-29-2020 : 1940 Admission Diagnosis:SHORTNESS OF BREATH Attending: JEANINE FOWLER Current LOS: 6 Anticipated DC Date: Planned Disposition: Primary Insurance: MEDICARE A & B Discharge Planning Comments: CM met with patient to complete initial dc planning assessment. CM educated patient on the CM role and verbal consent given by patient to complete assessment. CM verified patient's address, phone number, and emergency contact phone numbers. Patient lives at home with Cindi. Her phone number is [phone]. At discharge patient plans to return home and feels this is a safe discharge. CM discussed availability of home health, rehab services, and medical equipment. CM spoke with patient about increased need for oxygen, and becoming weaker during hospital stay. Pt states he refuses to go to IP rehab. States he does not like it down there. Patient agrees to have [email or web address] with PT, and an aide. Pt has home and portable oxygen from [facility]. OKSANA signed to resume [facility], start home health with [email or web address]. Declination signed for IP rehab. CM spoke with Luisito from [facility] at [phone] to send up portable oxygen tank. CM spoke with Naeem from [facility] at [phone] for a potential start of service tomorrow for PT, nursing, and aide for ADL's. Transportation provider at discharge will be his nephew or step daughter. CM will continue to follow and will assist as needed with dc plans/needs. Soft Metals Hand Engraver: Magalys Darnell DCPIA - Discharge Planning Initial Assessment Updated by [email or web address]: Magalys Danrell on 02/04/20 12:46 pm * Is the patient Alert and Oriented? Yes * How many steps to enter\exit or inside your home? 014 * PCP ESTRELLA * Pharmacy [facility] * Preadmission Environment Home with Family * ADLs Partial Dependent * Partial ADLs (Assistance needed) Bathing Dressing Medication Management * Equipment Nebulizer Rolling Walker * List name and contact numbers for known caregivers / representatives who currently or will assist patient after discharge: ISAIAS [phone] * Verbal permission to speak to the caregivers and representatives has been obtained from the patient. Yes * Community resources currently utilized Other * Please name any agencies selected above. [facility] * Additional services required to return to the preadmission environment? Yes * Can the patient safely return to the preadmission environment? Yes * Has this patient been hospitalized within the prior 30 days at any hospital? No External Providers [email or web address] Next Contact Date: Service Request Date: Service Type: Resolution: Reviewer: Comments: External Provider: Nadia Next Contact Date: Service Request Date: Service Type: Resolution: Reviewer: Comments: Last DP export: 02/04/20 11:47 a Patient Name: SONU GALLARDO Page [phone] at 1314 All edits/amendments must be made on the electronic document DICTATION DATE: 02/04/20 1313 PITCH GATHERER: MANJIT 02/04/20 1313 RPT#: [id number] DC DATE: STATUS: ADM IN [facility] [address] [place] [address] END OF REPORT
--- NOTE | 2020-02-04 13:30 | MORECARE ---
CASE MANAGEMENT DISCHARGE SUMMARY PATIENT: SONU GALLARDO UNIT: [id number] ADM DATE: 01/29/20 AGE: 79 : 42 SEX: M ROOM/BED: D.2136 AUTHOR: YOSELIN,DOC PHYSICIAN: REFERRING PHYSICIAN: PETER FOWLER MD DATE OF SERVICE: 02/04/20 Discharge Plan Patient Name: SONU GALLARDO Facility: [facility]:[place] : 1940 Planned Disposition: Anticipated Discharge Date: Discharge Date: Expected LOS: Initial Reviewer: [email or web address] Initial Review Date: 01/29/2020 Generated: 02/04/20 2:30 pm Comments DCP- Discharge Planning Updated by [email or web address]: Magalys Darnell on 02/04/20 12:[address] Patient Name: SONU GALLARDO Admission Status: ER Accout number: [id number] Admission Date: 01-29-2020 : 1940 Admission Diagnosis:SHORTNESS OF BREATH Attending: JEANINE FOWLER Current LOS: 6 Anticipated DC Date: Planned Disposition: Primary Insurance: MEDICARE A & B Discharge Planning Comments: CM met with patient to complete initial dc planning assessment. CM educated patient on the CM role and verbal consent given by patient to complete assessment. CM verified patient's address, phone number, and emergency contact phone numbers. Patient lives at home with Cindi. Her phone number is [phone]. At discharge patient plans to return home and feels this is a safe discharge. CM discussed availability of home health, rehab services, and medical equipment. CM spoke with patient about increased need for oxygen, and becoming weaker during hospital stay. Pt states he refuses to go to IP rehab. States he does not like it down there. Patient agrees to have [facility] with PT, and an aide. Pt has home and portable oxygen from [facility]. OKSANA signed to resume [facility], start home health with [facility] Declination signed for IP rehab. CM spoke with Luisito from [facility] at [phone] to send up portable oxygen tank. CM spoke with Naeem from [facility] at [phone] for a potential start of service tomorrow for PT, nursing, and aide for ADL's. Transportation provider at discharge will be his nephew or step daughter. DC IMM delivered, explained, signed by the patient, and placed in chart. Signed form also left with the patient. CM will continue to follow and will assist as needed with dc plans/needs. Fuel Buyer: Magalys Darnell DCPIA - Discharge Planning Initial Assessment Updated by [email or web address]: Magalys Darnell on 02/04/20 12:46 pm * Is the patient Alert and Oriented? Yes * How many steps to enter\exit or inside your home? 0 * PCP ESTRELLA * Pharmacy [facility] * Preadmission Environment Home with Family * ADLs Partial Dependent * Partial ADLs (Assistance needed) Bathing Dressing Medication Management * Equipment Nebulizer Rolling Walker * List name and contact numbers for known caregivers / representatives who currently or will assist patient after discharge: ISAIAS [phone] * Verbal permission to speak to the caregivers and representatives has been obtained from the patient. Yes * Community resources currently utilized Other * Please name any agencies selected above. [facility] * Additional services required to return to the preadmission environment? Yes * Can the patient safely return to the preadmission environment? Yes * Has this patient been hospitalized within the prior 30 days at any hospital? No Coverage Notice Reviewer: [email or web address] - Magalys Darnell Notice Issued Date-Time: 02/04/2020 12:00 Notice Type: IM Discharge Notice Notice Delivered To: Patient Relationship to Patient: Occupational Therapy Department Chair Name: Delivery Method: HAND - Hand Delivered Saira Days: Prior Verbal Notification: Recipient Understood Notice: Yes Recipient Signature: Yes Med Rec Note Co-signed by Attending: Coverage Notice Comment: Reviewer: [id number] - Magalys Darnell Notice Issued Date-Time: 02/04/2020 12:00 Notice Type: Patient Choice Letter Notice Delivered To: Patient Relationship to Patient: Occupational Therapy Department Chair Name: Delivery Method: - Saira Days: Prior Verbal Notification: Recipient Understood Notice: Recipient Signature: Med Rec Note Co-signed by Attending: Coverage Notice Comment: Last DP export: 02/04/20 12:14 p Patient Name: SONU GALLARDO Page 11397 at 1330 All edits/amendments must be made on the electronic document DICTATION DATE: 02/04/20 1330 STAFF MIDWIFE: MANJIT 02/04/20 1330 RPT#: [id number] DC DATE: STATUS: ADM IN [facility] [address] [place] [address] END OF REPORT
[2020-02-04] MEDS ORDERED: LEVAQUIN750 MG PO (13:56)
[2020-02-04 14:24] VITALS: BP 110/67
[2020-02-04] MEDS ORDERED: PREDNISONE10 MG PO (14:24)
--- NOTE | 2020-02-04 17:39 | NUR ---
ESCORTED DOWN VIA WHEELCHAIR TO BROTHER. VERBAL AND WRITTEN DISCHARGE INSTRUCTIONS GIVEN. PATIENT REMAINS FREE FROM HARM.
[2020-02-05 03:07] LABS: IMMUNOGLOBULIN E 344 IU/mL (6-495)
--- NOTE | 2020-02-05 08:12 | NUR ---
OT NOTE: PT COMPLETED ADL MOB WITH CGA. PT COMPLETED STANDING BALANCE WITH CGA. PT COMPLETED TOILETING WITH CGA. PT COMPLETED UB HYGIENE WITH SETUP. [phone] THANK YOU,CHRISTY OLIVEROS
--- NOTE | 2020-02-05 13:43 | NUR ---
FAMILY MEMBER TO CALL AND STATE THAT MEDICATION WAS NOT CALLED IN TO [facility] (WHICH WAS ESCRIPTED). I CALLED THE MEDICATIONS IN. SHE ALSO STATES THAT THE PATIENT WENT HOME WITH AN IV STILL IN. I ASKED THAT SHE COME UP HERE TO HAVE IT TAKEN OUT, SHE STATES THAT SHE CAN DO IT THERE.
--- NOTE | 2020-02-05 14:05 | NUR ---
I CALLED AND SPOKE TO ISRRAEL DONOVAN AT [facility] [phone].
--- NOTE | 2020-02-05 14:42 | MORECARE ---
CASE MANAGEMENT DISCHARGE SUMMARY PATIENT: SONU GALLARDO UNIT: [id number] ADM DATE: 01/29/20 AGE: 79 : 44 SEX: M ROOM/BED: D.2136 AUTHOR: YOSELIN,DOC PHYSICIAN: REFERRING PHYSICIAN: PETER FOWLER MD DATE OF SERVICE: 02/05/20 Discharge Plan Patient Name: SONU GALLARDO Facility: [facility]:[place] : 1940 Planned Disposition: Anticipated Discharge Date: Discharge Date: 02/04/2020 Expected LOS: Initial Reviewer: [email or web address] Initial Review Date: 01/29/2020 Generated: 02/05/20 3:41 pm Comments DCP- Discharge Planning Updated by [email or web address]: Magalys Darnell on 02/04/20 12:[address] Patient Name: SONU GALLARDO Admission Status: ER Accout number: [id number] Admission Date: 01-29-2020 : 1940 Admission Diagnosis:SHORTNESS OF BREATH Attending: JEANINE FOWLER Current LOS: 6 Anticipated DC Date: Planned Disposition: Primary Insurance: MEDICARE A & B Discharge Planning Comments: CM met with patient to complete initial dc planning assessment. CM educated patient on the CM role and verbal consent given by patient to complete assessment. CM verified patient's address, phone number, and emergency contact phone numbers. Patient lives at home with Cindi. Her phone number is [phone]. At discharge patient plans to return home and feels this is a safe discharge. CM discussed availability of home health, rehab services, and medical equipment. CM spoke with patient about increased need for oxygen, and becoming weaker during hospital stay. Pt states he refuses to go to IP rehab. States he does not like it down there. Patient agrees to have [facility] with PT, and an aide. Pt has home and portable oxygen from [facility]. [place] signed to resume [facility], start home health with [facility]. Decl[place] signed for IP rehab. CM spoke with Luisito from [facility] at [phone] to send up portable oxygen tank. CM spoke with Naeem marina [facility] at [phone] for a potential start of service tomorrow for PT, nursing, and aide for ADL's. Transportation provider at discharge will be his nephew or step daughter. DC IMM delivered, explained, signed by the patient, and placed in chart. Signed form also left with the patient. CM will continue to follow and will assist as needed with dc plans/needs. Monorail Operator: Magalys Darnell DCPIA - Discharge Planning Initial Assessment Updated by [email or web address]: Magalys Darnell on 02/04/20 12:46 pm * Is the patient Alert and Oriented? Yes * How many steps to enter\exit or inside your home? 0 * PCP [facility] * [facility] * Preadmission Environment Home with Family * ADLs Partial Dependent * Partial ADLs (Assistance needed) Bathing Dressing Medication Management * Equipment Nebulizer Rolling Walker * List name and contact numbers for known caregivers / representatives who currently or will assist patient after discharge: ISAIAS [phone] * Verbal permission to speak to the caregivers and representatives has been obtained from the patient. Yes * Community resources currently utilized Other * Please name any agencies selected above. [facility] * Additional services required to return to the preadmission environment? Yes * Can the patient safely return to the preadmission environment? Yes * Has this patient been hospitalized within the prior 30 days at any hospital? No Coverage Notice Reviewer: [email or web address] Nisa Darnell Notice Issued Date-Time: 02/04/2020 12:00 Notice Type: IM Discharge Notice Notice Delivered To: Patient Relationship to Patient: Behavioral Health Clinician Name: Delivery Method: HAND - Hand Delivered Saira Days: Prior Verbal Notification: Recipient Understood Notice: Yes Recipient Signature: Yes Med Rec Note Co-signed by Attending: Coverage Notice Comment: Reviewer: [id number] - Magalys Darnell Notice Issued Date-Time: 02/04/2020 12:00 Notice Type: Patient Choice Letter Notice Delivered To: Patient Relationship to Patient: Behavioral Health Clinician Name: Delivery Method: HAND - Hand Delivered Saira Days: Prior Verbal Notification: Recipient Understood Notice: Yes Recipient Signature: Yes Med Rec Note Co-signed by Attending: Coverage Notice Comment: [facility], DECLINATION FOR ip REHAB Last DP export: 02/04/20 12:30 p Patient Name: SONU GALLARDO Page [id number] at 1442 All edits/amendments must be made on the electronic document DICTATION DATE: 02/05/201440 ANIMAL DOCTOR: MANJIT 02/05/20 144 RPT#: [id number] DC DATE:02/04/20 STATUS: DIS IN [facility] [address] [place] [address] END OF REPORT
== END 2020-02-04 17:41 | disposition home health service (06) | DRG 177 ==
LOC: D.ER 13:24 → D.M2 16:55
PROVIDERS: Family Medicine; Internal Medicine Pulmonary Disease; ADMIT Emergency Medicine; ATTEND Emergency Medicine
DX: J69.0 Pneumonitis due to inhalation of food and vomit (principal); J96.21 Acute and chronic respiratory failure with hypoxia; J96.22 Acute and chronic respiratory failure with hypercapnia; E43 Unspecified severe protein-calorie malnutrition; J44.1 Chronic obstructive pulmonary disease with (acute) exacerbation; I48.20 Chronic atrial fibrillation, unspecified; F17.203 Nicotine dependence unspecified, with withdrawal; Z68.1 Body mass index [BMI] 19.9 or less, adult; D64.9 Anemia, unspecified; E83.42 Hypomagnesemia; I10 Essential (primary) hypertension; D47.3 Essential (hemorrhagic) thrombocythemia; I25.10 Atherosclerotic heart disease of native coronary artery without angina pectoris; E87.5 Hyperkalemia